=== PATIENT | male | born 1985 | race Caucasian/White ===

== ENCOUNTER 2022-08-19 07:27 | Outpatient (REF) | payer OTHER, SELFPAY ==
[2022-08-19 11:12] LABS: MANUAL DIFF FLAG NO
[2022-08-19 11:23] LABS: Basophils Absolute Auto 0.1 X10*3/uL (0.0-0.2); Basophils Percent Auto 1.9 % (0-2); Eosinophils Absolute Auto 0.3 X10*3/uL (0.0-0.4); Eosinophils Percent Auto 5.4 % (0-4); Hematocrit 47.2 % (42.0-52.0); Hemoglobin 16.3 g/dl (14.0-18.0); Imm Gran Abs Auto 0.01 X10*3/uL (0.00-0.03); Imm Gran Pct Auto 0.2 % (0.0-0.4); Lymphocytes Absolute Auto 1.7 X10*3/uL (1.2-4.9); Mean Corpuscular HGB Conc 34.5 g/dl (31.0-36.0); Mean Corpuscular Hemoglobin 29.7 pg (27.0-33.0); Mean Platelet Volume 9.7 fL (9.4-12.4); Monocytes Absolute Auto 0.5 X10*3/uL (0.1-1.2); Monocytes Percent Auto 9.1 % (2-11); Neutrophils Absolute Auto 3.1 x10*3/uL (2.0-8.3); Neutrophils Percent Auto 54.4 % (45-73); Platelet Count 269 X10*3/uL (160-400); Red Blood Count 5.49 X10*6/uL (4.60-5.80); Red Cell Distribution Width 11.9 % (11.0-16.0); White Blood Count 5.7 X10*3/uL (4.8-10.8)
[2022-08-19 11:48] LABS: Alanine Aminotransferase 17 U/L (0-40); Albumin Level 4.6 g/dL (3.5-5.0); Alkaline Phosphatase 43 U/L (39-117); Anion Gap 10 (12-20); Aspartate Amino Transferase 16 U/L (5-37); Bilirubin Total 2.1 mg/dL (0.0-1.0); Blood Urea Nitrogen 17 mg/dL (9-16); Calcium 9.1 mg/dL (8.4-10.2); Carbon Dioxide 25 mmol/L (22-29); Chloride 107 mmol/L (96-108); Cholesterol 165 mg/dL; Estimated Glomerular Filt Rate > 60; Glucose Fasting 92 mg/dL (60-99); HDL Cholesterol 46 mg/dL; LDL Cholesterol Calculated 106 mg/dl; Potassium 4.3 mmol/L (3.3-5.1); Sodium 138 mmol/L (135-145); Triglycerides 67 mg/dL
== END 2022-08-19 07:28 | disposition home or self-care (01) ==
LOC: HO.HMGCLDS 07:27
PROVIDERS: PCP Internal Medicine; Visit Provider Internal Medicine
DX: Z00.01 Encounter for general adult medical examination with abnormal findings (principal); R03.0 Elevated blood-pressure reading, without diagnosis of hypertension
CPT/HCPCS: 36415; 80053; 80061; 85025

== ENCOUNTER 2023-08-20 16:09 | Inpatient (IN) | payer OTHER, SELFPAY ==
--- NOTE | ~2023-08-20 | XR_ITS ---
EXAMINATION: XR KNEE, LEFT CLINICAL INFORMATION: Left knee pain and swelling. COMPARISON: None available. TECHNIQUE: Four views of the left knee. FINDINGS: Alignment is anatomic. Joint spaces are maintained. No displaced fracture. No significant joint effusion. Prepatellar soft tissue swelling. XR/XR knee LT 3V IMPRESSION: Prepatellar soft tissue swelling.
[2023-08-20 16:25] VITALS: BP 113/63; PULSE 101; RESP 18; TEMP 37.4; O2SAT 98; BMI 25.0
--- NOTE | 2023-08-20 16:25 | ED_ITS ---
HPI - General Adult General Chief complaint: General Medical Stated complaint: right knee pain swollen Time Seen by Provider: 08/20/23 22:03 Source: patient and family Mode of arrival: ambulatory Limitations: no limitations History of Present Illness HPI narrative: 38 yo male no PMH no hx of MRSA here with c/o L knee pain and redness without known cause of infection did get tattoo 2 weeks prior on that calf but the tattoo is healing well. It hurts to move and walk. He denies known bite or puncture. No obvious fevers, this has never happened before. MD complaint: rash on L knee Onset (ago): day(s) (Sunday) Location: left and lower extremity Radiation: non-radiation Severity: moderate Quality: aching Pain Consistency: constant Relieving factors: rest Exacerbating factors: movement Associated symptoms: malaise and rash Treatments prior to arrival: none Related Data Home Medications ?Medication ?Instructions ?Recorded ?Confirmed No Known Home Meds 08/18/22 08/18/22 Allergies Allergy/AdvReac Type Severity Reaction Status Date / Time No Known Allergies Allergy Verified 08/20/23 16:28 Review of Systems 2 Review of Systems: Constitutional : No Fever, No Chills ENT/Mouth : No sore throat, No Rhinorrhea Eyes: No Eye Pain, No Swelling, No Redness Cardiovascular : No Chest Pain, No SOB Respiratory : No Cough, No Sputum Gastrointestinal : No Nausea, No Vomiting, No Diarrhea, No abdominal Pain Genitourinary : No Dysuria, No Hematuria Musculoskeletal : No joint pain, No Myalgias, No Joint Swelling Skin : No Skin Lesions, positive skin rash Neuro : No Weakness, No Numbness, No Headache Psych : No Anxiety, No Depression All other systems reviewed and are negative [facility] Past Medical History Attestation statement: The following information was validated with the patient. Source: old records reviewed Medical History Elevated blood pressure reading Family History Family History Father No problems noted. Mother Type 2 diabetes mellitus Maternal Grandmother Lung cancer Social History Social History Housing: House Patient Tobacco Use Status: Never used Tobacco e-Cigarette/Vaping Use: Never Used Advance Directives: No Advance Directives Information Provided: No Do you have a plan to hurt others: No Plan Current occupational status: employed Cognitive needs: No Hearing needs: No Vision needs: No Physical Exam ED Vital Signs: Vital Signs - 24 hr 08/20/23 16:25 Temperature 99.4 F Pulse Rate 101 H Respiratory Rate 18 Blood Pressure 113/63 Pulse Oximetry 98 Oxygen Delivery Method Room Air BMI result Body Mass Index 25.0 Appearance: Alert. Oriented X3. No acute distress. Eyes: Pupils equal, round and reactive to light. ENT: Pharynx normal. Neck: Normal inspection. Neck supple. CVS: Normal heart rate and rhythm. Pulses normal. Respiratory: No respiratory distress. Breath sounds normal. Abdomen: Soft and nontender. Skin: Skin warm and dry. Normal skin color. Extremities: L anterior leg pre patella very hot to touch and red with pinpoint area noted no pustule no abscess no bogginess no fluctuance - no joint effusion and can bend the knee not consistent with septic joint. His tattoo is peeling but not celluitic, the redness streaks up the thigh and onto the lower leg Neuro: Oriented X 3. No motor deficit. No sensory deficit. Course Course Course Narrative: RME performed by Mely Howell PA-C. Patient is a 38 year old assigned male at presenting to the emergency department with left knee pain. Patient states all of a sudden 3 days ago his left lower leg became warm, swollen, and painful to walk on. Patient has a relatively new tattoo on the same extremity that is 2 weeks old - tattoo looks intact and not infectious. Detailed physical exam and review of systems are deferred to the ice cream machine operator. Labs and imaging ordered. Patient placed back in the waiting room pending room availability and results. Medical Decision Making Medical Decision Making MDM Narrative: 38 yo male healthy here with worsening L leg anterior cellulitis has pretty moderate cellulitis likely from puncture or bite on anterior L patella area no systemic toxicity but he is tachycardia and low grade temps has WBC count 15.6 there are no clinical signs of septic joint. At this time given presentation will obtain cultures and start on vancomycin and zosyn and admit for IV antibiotics 1017pm Differential Diagnosis Differential Diagnoses: The differential diagnosis associated with the presentation includes celllulitis Admission/Observation Consideration of admission/observation: Escalation of care including admission/observation considered admit for IV antibiotics and monitoring of cellulitis Consult Healthcare Provider Management of the patient was discussed with: Hospitalist (will admit) Lab Data MDM Lab Attestation statement: I reviewed the patient's lab results. 08/20/23 18:02 08/20/23 18:02 Labs: Lab Results 08/20/23 Range/Units 18:02 WBC 15.6 H (4.8-10.8) X10*3/uL RBC 5.09 (4.60-5.80) X10*6/uL Hgb 15.3 (14.0-18.0) g/dl Hct 43.0 (42.0-52.0) % MCV 84.5 (80.0-98.0) fL MCH 30.1 (27.0-33.0) pg MCHC 35.6 (31.0-36.0) g/dl RDW 12.2 (11.0-16.0) % Plt Count 251 (160-400) X10*3/uL MPV 9.4 (9.4-12.4) fL Immature Gran % (Auto) 0.3 (0.0-0.4) % Neut % (Auto) 88.9 H (45-73) % Lymph % (Auto) 4.7 L (20-40) % [place] % (Auto) 5.6 (2-11) % Eos % (Auto) 0.1 (0-4) % Baso % (Auto) 0.4 (0-2) % Lymph # (Auto) 0.7 L (1.2-4.9) X10*3/uL [place] # (Auto) 0.9 (0.1-1.2) X10*3/uL Eos # (Auto) 0.0 (0.0-0.4) X10*3/uL Baso # (Auto) 0.1 (0.0-0.2) X10*3/uL Abs Immat Gran (auto) 0.05 H (0.00-0.03) X10*3/uL Absolute Neuts (auto) 13.9 H (2.0-8.3) x10*3/uL Absolute Nucleated RBC 0.000 (0.0-0.012) X10*3/uL Nucleated RBC % (auto) 0.0 (0.0-0.2) /100WBC ESR 12 (0-15) MM/HR Sodium 137 (135-145) mmol/L Potassium 4.0 (3.3-5.1) mmol/L Chloride 102 (96-108) mmol/L Carbon Dioxide 24 (22-29) mmol/L Anion Gap 15 (12-20) BUN 10 (9-16) mg/dL Creatinine 0.89 (0.5-1.4) mg/dL Estim Creat Clear Calc 101.5 Estimated GFR > 60 Random Glucose 127 H (60-115) mg/dL Lactic Acid 1.2 (0.5-2.0) mmol/L Calcium 10.0 D (8.4-10.2) mg/dL Magnesium 2.0 (1.6-2.6) mg/dL Total Bilirubin 1.4 H (0.0-1.0) mg/dL AST 27 (5-37) U/L ALT 39 (0-40) U/L Alkaline Phosphatase 63 (39-117) U/L C-Reactive Protein 10.71 H (< or = 0.50) mg/dL Total Protein 8.0 (6.5-8.0) g/dL Albumin 4.7 (3.5-5.0) g/dL Independent Interpretation I performed an independent interpretation of an: Plain X-Ray (no joint effusion) Independent Historian Clinical information obtained from an independent historian. History obtained from or confirmed by: Spouse External Record Review External record reviewed: Office record Discharge Plan Discharge Clinical Impression: Elevated WBC count, Cellulitis Patient Disposition: Admitted As Inpatient Prescriptions: No Action No Known Home Meds Print Language: Serbian
[2023-08-20 18:15] LABS: MANUAL DIFF FLAG NO
[2023-08-20 18:22] LABS: Basophils Absolute Auto 0.1 X10*3/uL (0.0-0.2); Basophils Percent Auto 0.4 % (0-2); Eosinophils Percent Auto 0.1 % (0-4); Hemoglobin 15.3 g/dl (14.0-18.0); Imm Gran Abs Auto 0.05 X10*3/uL (0.00-0.03); Imm Gran Pct Auto 0.3 % (0.0-0.4); Lymphocytes Absolute Auto 0.7 X10*3/uL (1.2-4.9); Lymphocytes Percent Auto 4.7 % (20-40); Mean Corpuscular HGB Conc 35.6 g/dl (31.0-36.0); Mean Corpuscular Hemoglobin 30.1 pg (27.0-33.0); Mean Corpuscular Volume 84.5 fL (80.0-98.0); Mean Platelet Volume 9.4 fL (9.4-12.4); Monocytes Absolute Auto 0.9 X10*3/uL (0.1-1.2); Monocytes Percent Auto 5.6 % (2-11); Neutrophils Absolute Auto 13.9 x10*3/uL (2.0-8.3); Neutrophils Percent Auto 88.9 % (45-73); Platelet Count 251 X10*3/uL (160-400); Red Blood Count 5.09 X10*6/uL (4.60-5.80); Red Cell Distribution Width 12.2 % (11.0-16.0); White Blood Count 15.6 X10*3/uL (4.8-10.8)
[2023-08-20 18:42] LABS: Lactic Acid 1.2 mmol/L (0.5-2.0)
[2023-08-20 18:48] LABS: Alanine Aminotransferase 39 U/L (0-40); Albumin Level 4.7 g/dL (3.5-5.0); Alkaline Phosphatase 63 U/L (39-117); Anion Gap 15 (12-20); Aspartate Amino Transferase 27 U/L (5-37); Bilirubin Total 1.4 mg/dL (0.0-1.0); Blood Urea Nitrogen 10 mg/dL (9-16); C Reactive Protein 10.71 mg/dL (< or = 0.50); Carbon Dioxide 24 mmol/L (22-29); Chloride 102 mmol/L (96-108); Creatinine Clr Calc Pharmacy 101.5; Estimated Glomerular Filt Rate > 60; Glucose Random 127 mg/dL (60-115); Sodium 137 mmol/L (135-145)
[2023-08-20 19:04] LABS: Erythrocyte Sedimentation Rate 12 MM/HR (0-15)
--- NOTE | 2023-08-20 22:17 | PM.IMHP ---
History of Present Illness Date of Service: 08/20/23 Chief Complaint: Infection This is a 38-year-old male with no pertinent past medical history and not on prescription medications who presents to the emergency department for evaluation of redness and swelling over left knee. Patient states he 1st noticed about redness and swelling over left knee 3 days prior to presentation. It has progressed over the last 24-48 hours. No similar history in the past. Also has been having pain but is able to bend his knee and walk. Patient has a tattoo over left leg that he got 2 weeks prior to presentation but no infection over it. No drainage from left knee site. Patient does not remember any trauma to the left knee but states he was moving stuff all of last week and thinks he could have bumped it somewhere. No fever, chills, nausea, vomiting, chest discomfort, palpitations, shortness of breath, abdominal pain, changes in urinary or bowel habits. In the emergency department, patient was found to be septic and initiated on empiric IV antibiotics. Review of Systems Constitutional: Constitutional: Reports no additional constitutional complaints Cardiovascular: Cardiovascular: Reports no additional cardiovascular complaints Respiratory: Respiratory: Reports no additional respiratory complaints Gastrointestinal: Gastrointestinal: Reports no additional gastrointestinal complaints Genitourinary: Genitourinary: Reports no additional male genitourinary complaints [facility] Medical History Elevated blood pressure reading Family History Father No problems noted. Mother Type 2 diabetes mellitus Maternal Grandmother Lung cancer Social History Housing: House Patient Tobacco Use Status: Never used Tobacco e-Cigarette/Vaping Use: Never Used Advance Directives: No Advance Directives Information Provided: No Do you have a plan to hurt others: No Plan Current occupational status: employed Cognitive needs: No Hearing needs: No Vision needs: No Meds Allergies Allergy/AdvReac Type Severity Reaction Status Date / Time No Known Allergies Allergy Verified 08/20/23 16:28 Active Medications: Current Medications Piperacillin Sod/Tazobactam (Sod 3.375 gm/ Sodium Chloride) 50 mls @ 100 mls/hr IV ONCE ONE Stop: 08/20/23 22:39 Vancomycin HCl 1,000 mg/Vancomycin HCl 750 mg/ Sodium Chloride 535 mls @ 267.5 mls/hr IV ONCE ONE Stop: 08/21/23 00:09 Sodium Chloride (Ns) 1,000 mls @ 999 mls/hr IV .Q1H1M RACHELLE Stop: 08/20/23 23:15 Home Medications ?Medication ?Instructions ?Recorded ?Confirmed ?Last Taken ?Type tykbuoy-mozfrwipgegxz-lnijepde 250 2 tab PO Q6H PRN Headache 08/20/23 08/20/23 Unknown History mg-250 mg-65 mg tablet (Excedrin Extra Strength) Physical Exam Vital Signs and Narrative: Vital Signs: Last Vital Signs Temp 99.4 F 08/20/23 16:25 Pulse 101 H 08/20/23 16:25 Resp 18 08/20/23 16:25 BP 113/63 08/20/23 16:25 Pulse Ox 98 08/20/23 16:25 O2 Del Method Room Air 08/20/23 16:25 BMI result Body Mass Index 25.0 Middle-aged male lying in bed in no distress Neck supple, no JVD Regular rate and rhythm, S1-S2 heard Regular breath sounds bilaterally, no wheezing or crackles appreciated Abdomen soft nontender, no guarding, no rigidity Patient is awake, alert and oriented to self, place, time and person ; no focal motor deficit Skin: Erythema, swelling, warmth present over left knee Psych: Normal mood No pedal edema Results Labs 08/20/23 18:02 08/20/23 18:02 Labs: Laboratory Results - last 24 hr 08/20/23 18:02 MCV 84.5 MCH 30.1 MCHC 35.6 RDW 12.2 Plt Count 251 MPV 9.4 Immature Gran % (Auto) 0.3 Neut % (Auto) 88.9 H Lymph % (Auto) 4.7 L [place] % (Auto) 5.6 Eos % (Auto) 0.1 Baso % (Auto) 0.4 Lymph # (Auto) 0.7 L [place] # (Auto) 0.9 Eos # (Auto) 0.0 Baso # (Auto) 0.1 Abs Immat Gran (auto) 0.05 H Absolute Neuts (auto) 13.9 H Absolute Nucleated RBC 0.000 Nucleated RBC % (auto) 0.0 ESR 12 Anion Gap 15 Estim Creat Clear Calc 101.5 Estimated GFR > 60 Random Glucose 127 H Lactic Acid 1.2 Calcium 10.0 D Magnesium 2.0 Total Bilirubin 1.4 H AST 27 ALT 39 Alkaline Phosphatase 63 C-Reactive Protein 10.71 H Total Protein 8.0 Albumin 4.7 Imaging Radiologist's Impressions: Impressions Knee X-Ray 08/20/23 16:42 IMPRESSION: Prepatellar soft tissue swelling. Assessment and Plan (1) Cellulitis: Qualifiers: Laterality: left Site of cellulitis: extremity Site of cellulitis of extremity: lower extremity Qualified Code(s): L03.116 - Cellulitis of left lower limb Status: Acute Plan This is a 38-year-old male with no pertinent past medical history and not on prescription medications who presents to the emergency department for evaluation of redness and swelling over left knee. #. Sepsis due to acute nonpurulent cellulitis of the left knee: Will admit patient and initiate empiric IV antibiotics. Resuscitated with IV crystalloids. Lactic acid and blood culture obtained. No joint effusion on imaging DVT prophylaxis: Lovenox Full code Admit as inpatient and will require two night minimum hospital stay for IV antibiotics (as above), which is not possible in a lesser acute setting. Quality Stroke Does the patient have a stroke diagnosis?: No VTE Prior VTE?: No VTE Risk Level:: Medical - moderate - high VTE Device Contraindication: Treatment Not Indicated VTE Drug Contraindication: N/A - Med Ordered
--- NOTE | 2023-08-20 22:32 | PHA.MEDREC ---
Pharmacy Consult ? Medication Reconciliation Pharmacy has completed the medication reconciliation. Patient reported only excedrin as needed. July Culver, HectorD
[2023-08-20] MEDS: Piperacillin Sodium/Tazobactam 3.375 GM in 0.9 % Sodium Chloride 50 ML IV (22:33)
[2023-08-20] MEDS: 0.9 % Sodium Chloride 1,000 ML 999 ML IV (22:34)
[2023-08-20 23:17] VITALS: BP 105/56; PULSE 81; RESP 18; TEMP 37.2; O2SAT 97
[2023-08-20] MEDS: vancomycin HCL 1,000 MG, vancomycin HCL 750 MG in 0.9 % Sodium Chloride 500 ML 267.5 MG IV (23:23)
[2023-08-21] MEDS: Enoxaparin Sodium 40 MG/0.4 ML SYRINGE SUBCUT ×2 (03:22→23:33)
[2023-08-21 03:41] VITALS: BP 96/53; PULSE 83; RESP 16; TEMP 36.4; O2SAT 98
[2023-08-21 06:07] LABS: MANUAL DIFF FLAG NO
[2023-08-21 06:11] LABS: Basophils Absolute Auto 0.1 X10*3/uL (0.0-0.2); Basophils Percent Auto 0.5 % (0-2); Eosinophils Percent Auto 0.3 % (0-4); Hematocrit 38.5 % (42.0-52.0); Hemoglobin 13.6 g/dl (14.0-18.0); Imm Gran Abs Auto 0.06 X10*3/uL (0.00-0.03); Imm Gran Pct Auto 0.4 % (0.0-0.4); Lymphocytes Percent Auto 6.9 % (20-40); Mean Corpuscular HGB Conc 35.3 g/dl (31.0-36.0); Mean Corpuscular Volume 84.8 fL (80.0-98.0); Mean Platelet Volume 9.5 fL (9.4-12.4); Monocytes Absolute Auto 1.1 X10*3/uL (0.1-1.2); Monocytes Percent Auto 8.2 % (2-11); Neutrophils Absolute Auto 11.6 x10*3/uL (2.0-8.3); Neutrophils Percent Auto 83.7 % (45-73); Platelet Count 217 X10*3/uL (160-400); Red Blood Count 4.54 X10*6/uL (4.60-5.80); Red Cell Distribution Width 12.1 % (11.0-16.0); White Blood Count 13.8 X10*3/uL (4.8-10.8)
[2023-08-21 06:33] LABS: Anion Gap 14 (12-20); Blood Urea Nitrogen 8 mg/dL (9-16); Carbon Dioxide 19 mmol/L (22-29); Chloride 109 mmol/L (96-108); Creatinine Clr Calc Pharmacy 117.3; Estimated Glomerular Filt Rate > 60; Glucose Random 120 mg/dL (60-115); Sodium 138 mmol/L (135-145)
[2023-08-21 08:28] VITALS: BP 123/70; PULSE 82; RESP 18; TEMP 37.3; O2SAT 98
--- NOTE | 2023-08-21 08:30 | HE.PHANOTE ---
Re: Vanco Renal function improving. Continue current regimen of 1250m q12h. Next trough 08/21 1000.
[2023-08-21] MEDS: 0.9 % Sodium Chloride Flush 3 ML SYRINGE IVFLUSH ×3 (09:19→21:42)
[2023-08-21] MEDS: Acetaminophen 325 MG TABLET 650 MG PO (09:37)
--- NOTE | 2023-08-21 09:38 | MHC.CM.PN ---
pt lives with is indepndet will not need services when dcd
[2023-08-21] MEDS: oxyCODONE HCl Immed Release 5 MG TABLET PO ×2 (09:42→21:42)
[2023-08-21 10:22] LABS: Uric Acid 2.9 mg/dL (3.4-7.0)
[2023-08-21] MEDS: vancomycin HCL 1,250 MG in 0.9 % Sodium Chloride 250 ML 166.67 MG IV ×2 (12:01→23:34)
--- NOTE | 2023-08-21 13:16 | P.PNIM_ITS ---
Subjective Subjective Date of Service: 08/21/23 Review of Systems Follow up knee cellulitis still with pain and stiffness Physical Exam 2 Vital Signs: Vital Signs: Last Vital Signs Temp 99.2 F 08/21/23 08:28 Pulse 82 08/21/23 08:28 Resp 18 08/21/23 08:28 BP 123/70 08/21/23 08:28 Pulse Ox 98 08/21/23 08:28 O2 Del Method Room Air 08/21/23 08:28 BMI result Body Mass Index 25.0 Appearing in no acute distress lung sounds are clear to auscultation heart regular rate rhythm, clear S1, S2 positive bowel sounds, abdomen is soft, nontender neuro patient is alert x3, no focal deficits Left knee with erythema and edema Objective Data Active Medications Acetaminophen (Acetaminophen 325 Mg Tablet) 650 mg PO Q6H PRN PRN Reason: Pain, Mild (Pain Scale 1-3) Last Admin: 08/21/23 09:37 Dose: 650 mg Documented By: AUDREY Enoxaparin Sodium (Enoxaparin Sodium 40 Mg/0.4 Ml Syringe) 40 mg SUBCUT Q24H [facility] Last Admin: 08/21/23 03:22 Dose: 40 mg Documented By: NUNO Vancomycin HCl 1,250 mg/ (Sodium Chloride) 250 mls @ 166.667 mls/hr IV Q12H [facility] Last Admin: 08/21/23 12:01 Dose: 166.67 mls/hr Documented By: AUDREY Melatonin (Melatonin 3 Mg Tablet) 6 mg PO BEDTIME PRN PRN Reason: Insomnia Morphine Sulfate (Morphine Sulfate 2 Mg/Ml Cartridge) 2 mg IVPUSH Q4H PRN; Protocol PRN Reason: Pain, Severe (Pain Scale 7-10) Ondansetron HCl (Ondansetron Hcl 4 Mg/2 Ml Vial) 4 mg IVPUSH Q8H PRN PRN Reason: Nausea and Vomiting Oxycodone HCl (Oxycodone Hcl Immed Release 5 Mg Tablet) 5 mg PO Q6H PRN PRN Reason: Pain, Moderate(Pain Scale 4-6) Last Admin: 08/21/23 09:42 Dose: 5 mg Documented By: AUDREY Pharmacy Consult (Consult Rx Vancomycin Dosing) 1 each MISCELLANE DAILY PRN PRN Reason: Consult order Sodium Chloride (0.9 % Sodium Chloride Flush 3 Ml Syringe) 3 ml IVFLUSH QSHIFT [facility] Last Admin: 08/21/23 09:19 Dose: 3 ml Documented By: AUDREY Labs 08/21/23 05:17 08/21/23 05:17 Labs: Laboratory Results - last 24 hr 08/20/23 08/21/23 08/21/23 18:02 05:17 09:40 MCV 84.5 84.8 MCH 30.1 30.0 MCHC 35.6 35.3 RDW 12.2 12.1 Plt Count 251 217 MPV 9.4 9.5 Immature Gran % (Auto) 0.3 0.4 Neut % (Auto) 88.9 H 83.7 H Lymph % (Auto) 4.7 L 6.9 L [place] % (Auto) 5.6 8.2 Eos % (Auto) 0.1 0.3 Baso % (Auto) 0.4 0.5 Lymph # (Auto) 0.7 L 1.0 L [place] # (Auto) 0.9 1.1 Eos # (Auto) 0.0 0.0 Baso # (Auto) 0.1 0.1 Abs Immat Gran (auto) 0.05 H 0.06 H Absolute Neuts (auto) 13.9 H 11.6 H Absolute Nucleated RBC 0.000 0.000 Nucleated RBC % (auto) 0.0 0.0 ESR 12 Anion Gap 15 14 Estim Creat Clear Calc 101.5 117.3 Estimated GFR > 60 > 60 Random Glucose 127 H 120 H Lactic Acid 1.2 Uric Acid 2.9 L Calcium 10.0 D 9.0 D Magnesium 2.0 Total Bilirubin 1.4 H AST 27 ALT 39 Alkaline Phosphatase 63 C-Reactive Protein 10.71 H Total Protein 8.0 Albumin 4.7 Assessment and Plan (1) Cellulitis: Status: Acute Plan This is a 38-year-old male with no pertinent past medical history and not on prescription medications who presents to the emergency department for evaluation of redness and swelling over left knee. Sepsis due to acute nonpurulent cellulitis of the left knee continue empiric IV antibiotics. Resuscitated with IV crystalloids. normal Lactic acid blood cultures pending No joint effusion on imaging pain management ID consult pending DVT prophylaxis: Lovenox Attending Dr. Cade Full code continue hospital stay for IV antibiotics (as above), which is not possible in a lesser acute setting. Quality Stroke Does the patient have a stroke diagnosis?: No VTE Prior VTE?: No VTE Risk Level:: Medical - moderate - high VTE Device Contraindication: Treatment Not Indicated VTE Drug Contraindication: N/A - Med Ordered
[2023-08-21 15:02] VITALS: BP 113/62; PULSE 85; TEMP 37.1; O2SAT 95
[2023-08-21 19:27] VITALS: BP 117/63; PULSE 92; RESP 16; TEMP 37.2; O2SAT 96
[2023-08-22 03:05] VITALS: BP 131/62; PULSE 85; RESP 18; TEMP 37; O2SAT 95
[2023-08-22 07:14] VITALS: BP 108/60; PULSE 79; RESP 18; TEMP 36.9; O2SAT 96
[2023-08-22 07:30] LABS: Creatinine Clr Calc Pharmacy 111.5; Estimated Glomerular Filt Rate > 60
--- NOTE | 2023-08-22 07:49 | HO.PM.IMPN ---
Subjective Subjective Date of Service: 08/22/23 Review of Systems Follow up knee cellulitis still with pain and stiffness Physical Exam Vital Signs: Vital Signs: Last Vital Signs Temp 98.4 F 08/22/23 07:14 Pulse 79 08/22/23 07:14 Resp 18 08/22/23 07:14 BP 108/60 08/22/23 07:14 Pulse Ox 96 08/22/23 07:14 O2 Del Method Room Air 08/22/23 07:14 BMI result Body Mass Index 25.0 Appearing in no acute distress lung sounds are clear to auscultation heart regular rate rhythm, clear S1, S2 positive bowel sounds, abdomen is soft, nontender neuro patient is alert x3, no focal deficits Left knee with erythema from inner thigh to robison Objective Data Active Medications Acetaminophen (Acetaminophen 325 Mg Tablet) 650 mg PO Q6H PRN PRN Reason: Pain, Mild (Pain Scale 1-3) Last Admin: 08/21/23 09:37 Dose: 650 mg Documented By: AUDREY Enoxaparin Sodium (Enoxaparin Sodium 40 Mg/0.4 Ml Syringe) 40 mg SUBCUT Q24H [facility] Last Admin: 08/21/23 23:33 Dose: 40 mg Documented By: BARRETT Vancomycin HCl 1,250 mg/ (Sodium Chloride) 250 mls @ 166.667 mls/hr IV Q12H [facility] Last Infusion: 08/22/23 01:22 Dose: Infused Documented By: BARRETT Melatonin (Melatonin 3 Mg Tablet) 6 mg PO BEDTIME PRN PRN Reason: Insomnia Morphine Sulfate (Morphine Sulfate 2 Mg/Ml Cartridge) 2 mg IVPUSH Q4H PRN; Protocol PRN Reason: Pain, Severe (Pain Scale 7-10) Ondansetron HCl (Ondansetron Hcl 4 Mg/2 Ml Vial) 4 mg IVPUSH Q8H PRN PRN Reason: Nausea and Vomiting Oxycodone HCl (Oxycodone Hcl Immed Release 5 Mg Tablet) 5 mg PO Q6H PRN PRN Reason: Pain, Moderate(Pain Scale 4-6) Last Admin: 08/21/23 21:42 Dose: 5 mg Documented By: BARRETT Pharmacy Consult (Consult Rx Vancomycin Dosing) 1 each MISCELLANE DAILY PRN PRN Reason: Consult order Sodium Chloride (0.9 % Sodium Chloride Flush 3 Ml Syringe) 3 ml IVFLUSH QSHIFT RACHELLE Last Admin: 08/21/23 21:42 Dose: 3 ml Documented By: BARRETT Labs 08/21/23 05:17 08/22/23 05:32 Labs: Laboratory Results - last 24 hr 08/21/23 08/22/23 09:40 05:32 Hold Purple Top SEE NOTE Estim Creat Clear Calc 111.5 Estimated GFR > 60 Uric Acid 2.9 L Microbiology Microbiology Results: Microbiology 08/20/23 22:32 Blood Culture - Preliminary Blood - Venous No growth after 24 hours. 08/20/23 18:02 Blood Culture - Preliminary Blood - Venous No growth after 24 hours. Assessment and Plan (1) Cellulitis: Status: Acute Plan This is a 38-year-old male with no pertinent past medical history and not on prescription medications who presents to the emergency department for evaluation of redness and swelling over left knee. Sepsis due to acute nonpurulent cellulitis of the left knee normal lactic acid blood cultures pending No joint effusion on imaging pain management Orthopedic consultation>warm compress, no joint infection ID consult pending leukocytosis secondary to cellulitis trending down DVT prophylaxis: Lovejocelynx Attending Dr. Cade Full code continue hospital stay for IV antibiotics (as above), which is not possible in a lesser acute setting. Quality Stroke Does the patient have a stroke diagnosis?: No VTE Prior VTE?: No VTE Risk Level:: Medical - moderate - high VTE Device Contraindication: Treatment Not Indicated VTE Drug Contraindication: N/A - Med Ordered
--- NOTE | 2023-08-22 07:54 | PM.CNOR ---
History of Present Illness HPI Consult date: 08/22/23 Chief complaint: left knee infection Narrative: Mr Ramsey is a 38-year-old male with no pertinent past medical history and not on prescription medications who presents to the emergency department for evaluation of redness and swelling over left knee. Patient states he 1st noticed about redness and swelling Sunday. Over the next following days the redness and pain has progressed. He presented to the ED sunday and was admitted for IV abx. Of note he did hjave a tattoo on the lateral lower leg roughly 2-3 weeks ago. Review of Systems Review of Systems: Yes all other systems are reviewed and are negative PMFSH Past Medical History Medical History Elevated blood pressure reading Family History Family History Father No problems noted. Mother Type 2 diabetes mellitus Maternal Grandmother Lung cancer Social History Social History Household Members: Family Housing: House Do you presently have visiting nurse or other home services: No Patient Tobacco Use Status: Never used Tobacco e-Cigarette/Vaping Use: Never Used service: Yes Current occupational status: employed Cognitive needs: No Hearing needs: No Vision needs: No Meds Allergies Allergy/AdvReac Type Severity Reaction Status Date / Time No Known Allergies Allergy Verified 08/20/23 16:28 Active Medications: Current Medications Acetaminophen (Acetaminophen 325 Mg Tablet) 650 mg PO Q6H PRN PRN Reason: Pain, Mild (Pain Scale 1-3) Last Admin: 08/21/23 09:37 Dose: 650 mg Enoxaparin Sodium (Enoxaparin Sodium 40 Mg/0.4 Ml Syringe) 40 mg SUBCUT Q24H [facility] Last Admin: 08/21/23 23:33 Dose: 40 mg Vancomycin HCl 1,250 mg/ (Sodium Chloride) 250 mls @ 166.667 mls/hr IV Q12H [facility] Last Infusion: 08/22/23 01:22 Dose: Infused Melatonin (Melatonin 3 Mg Tablet) 6 mg PO BEDTIME PRN PRN Reason: Insomnia Morphine Sulfate (Morphine Sulfate 2 Mg/Ml Cartridge) 2 mg IVPUSH Q4H PRN; Protocol PRN Reason: Pain, Severe (Pain Scale 7-10) Ondansetron HCl (Ondansetron Hcl 4 Mg/2 Ml Vial) 4 mg IVPUSH Q8H PRN PRN Reason: Nausea and Vomiting Oxycodone HCl (Oxycodone Hcl Immed Release 5 Mg Tablet) 5 mg PO Q6H PRN PRN Reason: Pain, Moderate(Pain Scale 4-6) Last Admin: 08/21/23 21:42 Dose: 5 mg Pharmacy Consult (Consult Rx Vancomycin Dosing) 1 each MISCELLANE DAILY PRN PRN Reason: Consult order Sodium Chloride (0.9 % Sodium Chloride Flush 3 Ml Syringe) 3 ml IVFLUSH QSHIFT [facility] Last Admin: 08/21/23 23:41 Dose: Not Given Home Medications ?Medication ?Instructions ?Recorded ?Confirmed ?Last Taken ?Type [id number] 250 2 tab PO Q6H PRN Headache 08/20/23 08/20/23 Unknown History mg-250 mg-65 mg tablet (Excedrin Extra Strength) Physical Exam Vital Signs: Vital Signs: Last Vital Signs Temp 98.4 F 08/22/23 07:14 Pulse 79 08/22/23 07:14 Resp 18 08/22/23 07:14 BP 108/60 08/22/23 07:14 Pulse Ox 96 08/22/23 07:14 O2 Del Method Room Air 08/22/23 07:14 BMI result Body Mass Index 25.0 Const: General: cooperative, healthy appearing and no acute distress Resp: Effort & Inspection: normal respiratory effort and able to speak in complete sentences Cardio: Rate: regular rate Peripheral pulses: Peripheral pulses 2+ throughout GI: Palpation (GI): Soft to palpation Skin: Lesions: no lesions Rashes: no rashes Extrem: Other: Left knee cellulitic Abscess over the anterior aspect of the knee with two small pustules noted Able to flex and extend with pain NVI Results Labs 08/21/23 05:17 08/22/23 05:32 Labs: Abnormal lab results 08/21/23 Range/Units 09:40 Uric Acid 2.9 L (3.4-7.0) mg/dL H & H 08/20/23 08/21/23 Range/Units 18:02 05:17 Hgb 15.3 13.6 L (14.0-18.0) g/dl Hct 43.0 38.5 L (42.0-52.0) % All other labs normal. Assessment and Plan (1) Cellulitis: Qualifiers: Laterality: left Site of cellulitis: extremity Site of cellulitis of extremity: lower extremity Qualified Code(s): L03.116 - Cellulitis of left lower limb Status: Acute Patient seen and evaluated this morning No evidence of septic joint Apply warm compress to allow for abscess to drain Continue abx Procedures Date of Service Date of Service: 08/22/23
[2023-08-22] MEDS: Morphine Sulfate 2 MG/ML CARTRIDGE IVPUSH (08:55)
[2023-08-22] MEDS: 0.9 % Sodium Chloride Flush 3 ML SYRINGE IVFLUSH ×4 (08:56→22:37)
[2023-08-22 10:22] LABS: Vancomycin Trough 8.2 mcg/mL (10.0-20.0)
--- NOTE | 2023-08-22 10:39 | HE.PHANOTE ---
Re: [place] Stable Renal function. Trough returned at 8.2, patient is subtherapeutic. Dose frequency increased to 1250mg Q8H, with predicted trough 15.1 mg/L, and predicted AUC 572 mg/L. Next tough is 08/22 @ 10:00.
[2023-08-22] MEDS: vancomycin HCL 1,250 MG in 0.9 % Sodium Chloride 250 ML 166.67 MG IV ×2 (11:54→21:03)
[2023-08-22] MEDS: oxyCODONE HCl Immed Release 5 MG TABLET PO ×2 (11:54→16:04)
[2023-08-22 15:11] VITALS: BP 118/62; PULSE 97; RESP 17; TEMP 36.3; O2SAT 95
[2023-08-22] MEDS: Lidocaine HCl 2 % 20 ML VIAL 5 ML SUBCUT (15:30)
--- NOTE | 2023-08-22 15:52 | PM.PRCOR ---
Brief Operative Note Date of procedure: 08/22/23 Procedure: Bedside I&D left knee performed Creamy discharge produced from the abscess site Surgeon: Stevan Lyon Pathology: none sent Condition: stable Disposition: floor
[2023-08-22 19:17] VITALS: BP 122/76; PULSE 95; RESP 16; O2SAT 95
[2023-08-22] MEDS: Enoxaparin Sodium 40 MG/0.4 ML SYRINGE SUBCUT (22:37)
[2023-08-23 03:18] VITALS: BP 117/63; PULSE 84; RESP 16; TEMP 36.7; O2SAT 97
[2023-08-23] MEDS: vancomycin HCL 1,250 MG in 0.9 % Sodium Chloride 250 ML 166.67 MG IV ×3 (03:24→20:18)
[2023-08-23 06:15] LABS: Creatinine Clr Calc Pharmacy 115.8; Estimated Glomerular Filt Rate > 60
[2023-08-23 07:28] VITALS: BP 114/68; PULSE 83; RESP 16; TEMP 36.7; O2SAT 96
[2023-08-23] MEDS: oxyCODONE HCl Immed Release 5 MG TABLET PO (08:23)
[2023-08-23] MEDS: 0.9 % Sodium Chloride Flush 3 ML SYRINGE IVFLUSH ×2 (08:24→20:21)
--- NOTE | 2023-08-23 09:51 | PM.PNORT ---
Subjective Subjective Date of Service: 08/23/23 Principal diagnosis: left knee spetic bursitis Physical Exam Vital Signs: Vital Signs: Last Vital Signs Temp 98.1 F 08/23/23 07:28 Pulse 83 08/23/23 07:28 Resp 16 08/23/23 07:28 BP 114/68 08/23/23 07:28 Pulse Ox 96 08/23/23 07:28 O2 Del Method Room Air 08/23/23 07:28 BMI result Body Mass Index 25.0 Extrem: Other: purulent discharge left knee abcess Procedures Date of Service Date of Service: 08/23/23 Progress Note: A&P Assessment and plan (1) Septic prepatellar bursitis of left knee: Status: Acute Assessment and Plan: Draining wound s/p bediside I&D. WOund re packed. Out of bed today and home tomorrow after dressing change. OK on PO abx Time Spent With Patient Time: Total time managing care of this patient today ____ minutes. Quality Stroke Does the patient have a stroke diagnosis?: No VTE Prior VTE?: No VTE Risk Level:: Medical - moderate - high VTE Device Contraindication: Treatment Not Indicated VTE Drug Contraindication: N/A - Med Ordered
[2023-08-23 10:23] LABS: Vancomycin Random 16.4 mcg/mL (15-20)
--- NOTE | 2023-08-23 13:31 | P.PNIM_ITS ---
Subjective Subjective Date of Service: 08/23/23 Interval History: seen and examined this morning follow up for left knee septic bursitis has left leg swelling, pain, no fever chills Review of Systems Review of Systems: Yes all other systems are reviewed and are negative Constitutional Constitutional: Denies chills and Denies fever(s) Physical Exam 2 Vital Signs: Vital Signs: Last Vital Signs Temp 98.1 F 08/23/23 07:28 Pulse 83 08/23/23 07:28 Resp 16 08/23/23 07:28 BP 114/68 08/23/23 07:28 Pulse Ox 96 08/23/23 07:28 O2 Del Method Room Air 08/23/23 07:28 BMI result Body Mass Index 25.0 Const: General: cooperative, comfortable, alert and awake Nutritional Appearance: average body habitus Orientation/consciousness: patient oriented x3 Resp: Effort & Inspection: normal respiratory effort, able to speak in complete sentences, no respiratory distress and no use of accessory muscles Cardio: Rate: regular rate GI: Inspection: No distended Palpation (GI): Soft to palpation and nontender Skin: Other: LLE with swelling, some erythema up posterior thigh; knee wrapped in clean/dry Elvis bandage Neuro: General: patient oriented x3 Objective Data Active Medications Acetaminophen (Acetaminophen 325 Mg Tablet) 650 mg PO Q6H PRN PRN Reason: Pain, Mild (Pain Scale 1-3) Last Admin: 08/21/23 09:37 Dose: 650 mg Documented By: AUDREY Enoxaparin Sodium (Enoxaparin Sodium 40 Mg/0.4 Ml Syringe) 40 mg SUBCUT Q24H [facility] Last Admin: 08/22/23 22:37 Dose: 40 mg Documented By: CALVIN Vancomycin HCl 1,250 mg/ (Sodium Chloride) 250 mls @ 166.667 mls/hr IV Q8H [facility] Last Admin: 08/23/23 12:52 Dose: 166.67 mls/hr Documented By: BAYRON Melatonin (Melatonin 3 Mg Tablet) 6 mg PO BEDTIME PRN PRN Reason: Insomnia Morphine Sulfate (Morphine Sulfate 2 Mg/Ml Cartridge) 2 mg IVPUSH Q4H PRN; Protocol PRN Reason: Pain, Severe (Pain Scale 7-10) Last Admin: 08/22/23 08:55 Dose: 2 mg Documented By: BAYRON Ondansetron HCl (Ondansetron Hcl 4 Mg/2 Ml Vial) 4 mg IVPUSH Q8H PRN PRN Reason: Nausea and Vomiting Oxycodone HCl (Oxycodone Hcl Immed Release 5 Mg Tablet) 5 mg PO Q6H PRN PRN Reason: Pain, Moderate(Pain Scale 4-6) Last Admin: 08/23/23 08:23 Dose: 5 mg Documented By: BAYRON Pharmacy Consult (Consult Rx Vancomycin Dosing) 1 each MISCELLANE DAILY PRN PRN Reason: Consult order Sodium Chloride (0.9 % Sodium Chloride Flush 3 Ml Syringe) [facility] Last Admin: 08/23/23 08:24 Dose: 3 ml Documented By: BAYRON Labs 08/21/23 05:17 08/23/23 05:15 Labs: Laboratory Results - last 24 hr 08/23/23 08/23/23 05:15 09:59 Estim Creat Clear Calc 115.8 Estimated GFR > 60 Random Vancomycin 16.4 Microbiology Microbiology Results: Microbiology 08/20/23 22:32 Blood Culture - Preliminary Blood - Venous No growth after 48 hours. 08/20/23 18:02 Blood Culture - Preliminary Blood - Venous No growth after 48 hours. Assessment and Plan (1) Septic prepatellar bursitis of left knee: Status: Acute Plan This is a 38-year-old male with no pertinent past medical history and not on prescription medications who presents to the emergency department for evaluation of redness and swelling over left knee. Sepsis due to acute left knee septic bursitis normal lactic acid; white count trending down s/p I&D 08/21 by orthopedic service; wound re-packed this am blood cultures negative to date continue vancomycin pain management ID consult pending seen by PT - outpatient services DVT prophylaxis: [place] Attending Dr. Cade Full code continue hospital stay for IV antibiotics (as above) close monitoring of the left knee, which is not possible in a lesser acute setting. Quality Stroke Does the patient have a stroke diagnosis?: No VTE Prior VTE?: No VTE Risk Level:: Medical - moderate - high VTE Device Contraindication: Treatment Not Indicated VTE Drug Contraindication: N/A - Med Ordered
[2023-08-23 15:08] VITALS: BP 115/72; PULSE 85; RESP 16; TEMP 36.7; O2SAT 97
[2023-08-23 19:08] VITALS: BP 120/74; PULSE 80; RESP 16; TEMP 36.6; O2SAT 97
[2023-08-23] MEDS: Enoxaparin Sodium 40 MG/0.4 ML SYRINGE SUBCUT (21:51)
[2023-08-24] MEDS: vancomycin HCL 1,250 MG in 0.9 % Sodium Chloride 250 ML 166.67 MG IV (03:15)
[2023-08-24 03:25] VITALS: BP 127/62; PULSE 78; RESP 16; TEMP 36.2; O2SAT 96
[2023-08-24 06:16] LABS: Creatinine Clr Calc Pharmacy 108.8; Estimated Glomerular Filt Rate > 60
[2023-08-24 07:11] VITALS: BP 102/60; PULSE 81; RESP 16; TEMP 36.4; O2SAT 97
[2023-08-24] MEDS: 0.9 % Sodium Chloride Flush 3 ML SYRINGE IVFLUSH ×3 (08:03→20:08)
[2023-08-24] MEDS: oxyCODONE HCl Immed Release 5 MG TABLET PO (08:03)
[2023-08-24 10:22] LABS: Vancomycin Trough 19.9 mcg/mL (10.0-20.0)
[2023-08-24 10:43] LABS: MANUAL DIFF FLAG NO
--- NOTE | 2023-08-24 10:43 | HE.PHANOTE ---
Re: [place] Patient has stable renal function. Trough returned at 19.9. Dose reduced to 1,000mg Q8H with predicted AUC 479 mg/L, predicted trough 12.8 mg/L. Next trough 08/24 at 1000.
[2023-08-24 10:48] LABS: Basophils Absolute Auto 0.1 X10*3/uL (0.0-0.2); Basophils Percent Auto 0.7 % (0-2); Eosinophils Absolute Auto 0.3 X10*3/uL (0.0-0.4); Eosinophils Percent Auto 3.4 % (0-4); Hematocrit 39.7 % (42.0-52.0); Hemoglobin 14.2 g/dl (14.0-18.0); Imm Gran Abs Auto 0.04 X10*3/uL (0.00-0.03); Imm Gran Pct Auto 0.5 % (0.0-0.4); Lymphocytes Absolute Auto 0.9 X10*3/uL (1.2-4.9); Lymphocytes Percent Auto 10.8 % (20-40); Mean Corpuscular HGB Conc 35.8 g/dl (31.0-36.0); Mean Corpuscular Hemoglobin 30.1 pg (27.0-33.0); Mean Corpuscular Volume 84.3 fL (80.0-98.0); Monocytes Absolute Auto 0.7 X10*3/uL (0.1-1.2); Neutrophils Absolute Auto 6.6 x10*3/uL (2.0-8.3); Neutrophils Percent Auto 76.6 % (45-73); Platelet Count 282 X10*3/uL (160-400); Red Blood Count 4.71 X10*6/uL (4.60-5.80); Red Cell Distribution Width 11.7 % (11.0-16.0); White Blood Count 8.6 X10*3/uL (4.8-10.8)
--- NOTE | 2023-08-24 11:43 | MHC.CM.PN ---
EMR REVIEWED, PER HOSPITALIST PT WILL REMAIN INPT 1 MORE NIGHT FOR CONT'D IV ABX, DCP CONT'S TO BE HOME NO SERVICES AND PT WILL ARRANGE TRANSPORT, CM WILL CONT TO FOLLOW.
[2023-08-24] MEDS: vancomycin HCL 1,000 MG in 0.9 % Sodium Chloride 250 ML 270 MG IV ×2 (12:23→20:10)
--- NOTE | 2023-08-24 13:54 | P.PNIM_ITS ---
Subjective Subjective Date of Service: 08/24/23 Interval History: Seen and examined this morning Follow-up for septic bursitis Still with drainage from the and erythema of posterior thigh. Pain and swelling improving Denies fever, chills Review of Systems Review of Systems: Yes all other systems are reviewed and are negative Constitutional Constitutional: Denies chills and Denies fever(s) Physical Exam 2 Vital Signs: Vital Signs: Last Vital Signs Temp 97.6 F 08/24/23 07:11 Pulse 81 08/24/23 07:11 Resp 16 08/24/23 07:11 BP 102/60 08/24/23 07:11 Pulse Ox 97 08/24/23 07:11 O2 Del Method Room Air 08/24/23 07:11 BMI result Body Mass Index 25.0 Const: General: cooperative, comfortable, alert and awake Nutritional Appearance: average body habitus Orientation/consciousness: patient oriented x3 Resp: Effort & Inspection: normal respiratory effort, able to speak in complete sentences, no respiratory distress and no use of accessory muscles Cardio: Rate: regular rate GI: Inspection: No distended Palpation (GI): Soft to palpation and nontender Skin: Other: LLE with swelling, some erythema up posterior thigh; knee wrapped in clean/dry Elvis bandage Neuro: General: patient oriented x3 Objective Data Active Medications Acetaminophen (Acetaminophen 325 Mg Tablet) 650 mg PO Q6H PRN PRN Reason: Pain, Mild (Pain Scale 1-3) Last Admin: 08/21/23 09:37 Dose: 650 mg Documented By: AUDREY Enoxaparin Sodium (Enoxaparin Sodium 40 Mg/0.4 Ml Syringe) 40 mg SUBCUT Q24H [facility] Last Admin: 08/23/23 21:51 Dose: 40 mg Documented By: CALVIN Vancomycin HCl 1,000 mg/ (Sodium Chloride) 270 mls @ 270 mls/hr IV Q8H [facility] Last Admin: 08/24/23 12:23 Dose: 270 mls/hr Documented By: KHADIJAH Melatonin (Melatonin 3 Mg Tablet) 6 mg PO BEDTIME PRN PRN Reason: Insomnia Morphine Sulfate (Morphine Sulfate 2 Mg/Ml Cartridge) 2 mg IVPUSH Q4H PRN; Protocol PRN Reason: Pain, Severe (Pain Scale 7-10) Last Admin: 08/22/23 08:55 Dose: 2 mg Documented By: BAYRON Ondansetron HCl (Ondansetron Hcl 4 Mg/2 Ml Vial) 4 mg IVPUSH Q8H PRN PRN Reason: Nausea and Vomiting Oxycodone HCl (Oxycodone Hcl Immed Release 5 Mg Tablet) 5 mg PO Q6H PRN PRN Reason: Pain, Moderate(Pain Scale 4-6) Last Admin: 08/24/23 08:03 Dose: 5 mg Documented By: KHADIJAH Pharmacy Consult (Consult Rx Vancomycin Dosing) 1 each MISCELLANE DAILY PRN PRN Reason: Consult order Sodium Chloride (0.9 % Sodium Chloride Flush 3 Ml Syringe) 3 ml IVFLUSH QSHIFT [facility] Last Admin: 08/24/23 08:03 Dose: 3 ml Documented By: KHADIJAH Labs 08/24/23 10:38 08/24/23 05:14 Labs: Laboratory Results - last 24 hr 08/24/23 08/24/23 08/24/23 05:14 09:57 10:38 MCV 84.3 MCH 30.1 MCHC 35.8 RDW 11.7 Plt Count 282 D MPV 9.0 L Immature Gran % (Auto) 0.5 H Neut % (Auto) 76.6 H Lymph % (Auto) 10.8 L [place] % (Auto) 8.0 Eos % (Auto) 3.4 Baso % (Auto) 0.7 Lymph # (Auto) 0.9 L [place] # (Auto) 0.7 Eos # (Auto) 0.3 Baso # (Auto) 0.1 Abs Immat Gran (auto) 0.04 H Absolute Neuts (auto) 6.6 Absolute Nucleated RBC 0.000 Nucleated RBC % (auto) 0.0 Estim Creat Clear Calc 108.8 Estimated GFR > 60 Vancomycin Trough 19.9 Assessment and Plan (1) Septic prepatellar bursitis of left knee: Status: Acute (2) Cellulitis: Status: Acute Plan This is a 38-year-old male with no pertinent past medical history and not on prescription medications who presents to the emergency department for evaluation of redness and swelling over left knee. Sepsis due to acute left knee septic bursitis/ LLE cellulitis normal lactic acid; white count resolved s/p I&D 08/21 by orthopedic service; wound re-packed this am No fluid culture sent blood cultures negative to date continue vancomycin ? Need to broaden/change coverage due to persistent cellulitis/erythema of left thigh - will discuss with ID pain management ID consult pending seen by PT - outpatient services DVT prophylaxis: Red Attending Dr. Cade Full code continue hospital stay for IV antibiotics (as above) close monitoring of the left knee, which is not possible in a lesser acute setting. Quality Stroke Does the patient have a stroke diagnosis?: No VTE Prior VTE?: No VTE Risk Level:: Medical - moderate - high VTE Device Contraindication: Treatment Not Indicated VTE Drug Contraindication: N/A - Med Ordered
[2023-08-24 15:09] VITALS: BP 118/70; PULSE 78; RESP 18; TEMP 36.3; O2SAT 95
[2023-08-24] MEDS: Clindamycin Phosphate/D5W 900 MG/50 ML PIGGYBACK 50 MG IV ×2 (15:25→23:16)
[2023-08-24 19:51] VITALS: BP 114/75; PULSE 91; RESP 20; TEMP 36.3; O2SAT 99
--- NOTE | 2023-08-24 21:03 | P.CNID_ITS ---
History of Present Illness Data of Consult Service Date: 08/22/23 Requesting physician: Aileen Proctor Primary Care Provider: MD LILLIE Whitman Reason for consult: left knee/leg redness He presents with redness left leg and pain. He had symptoms 2-3 days with redness and pain. He still has redness going up leg. Review of Systems 2 Review of Systems: Yes all other systems are reviewed and are negative PMF Past Medical History Medical History Elevated blood pressure reading Family History Family History Father No problems noted. Mother Type 2 diabetes mellitus Maternal Grandmother Lung cancer Family history: reviewed and not pertinent Social History Social History Household Members: Family Housing: House Do you presently have visiting nurse or other home services: No Patient Tobacco Use Status: Never used Tobacco Smoked in Last 30 Days: No e-Cigarette/Vaping Use: Never Used Use of substances other than those prescribed or required for medical reasons: No Currently Displaying Signs/Symptoms of Drug Intoxication Withdrawal: No Have you been hit, kicked, punched, or otherwise hurt by someone within the past year? If so, by whom?: No Do you feel safe in your current relationship?: Yes Is there a partner from a previous relationship who is making you feel unsafe now?: No Are you made to feel afraid or neglected: No Advance Directives: No Advance Directives Information Provided: No Do you have a plan to hurt others: No Plan Recently lost weight without trying: No Nutrition Risks: No Nutritional Risk Poor oral hygiene: No service: Yes Current occupational status: employed Cognitive needs: No Hearing needs: No Vision needs: No Meds Allergies Allergy/AdvReac Type Severity Reaction Status Date / Time No Known Allergies Allergy Verified 08/20/23 16:28 Active Medications: Current Medications Acetaminophen (Acetaminophen 325 Mg Tablet) 650 mg PO Q6H PRN PRN Reason: Pain, Mild (Pain Scale 1-3) Last Admin: 08/21/23 09:37 Dose: 650 mg Enoxaparin Sodium (Enoxaparin Sodium 40 Mg/0.4 Ml Syringe) 40 mg SUBCUT Q24H [facility] Last Admin: 08/23/23 21:51 Dose: 40 mg Clindamycin Phosphate (Cleocin) 900 mg in 50 mls @ 50 mls/hr IV Q8H [facility] Last Infusion: 08/24/23 16:31 Dose: Infused Melatonin (Melatonin 3 Mg Tablet) 6 mg PO BEDTIME PRN PRN Reason: Insomnia Morphine Sulfate (Morphine Sulfate 2 Mg/Ml Cartridge) 2 mg IVPUSH Q4H PRN; Protocol PRN Reason: Pain, Severe (Pain Scale 7-10) Last Admin: 08/22/23 08:55 Dose: 2 mg Ondansetron HCl (Ondansetron Hcl 4 Mg/2 Ml Vial) 4 mg IVPUSH Q8H PRN PRN Reason: Nausea and Vomiting Oxycodone HCl (Oxycodone Hcl Immed Release 5 Mg Tablet) 5 mg PO Q6H PRN PRN Reason: Pain, Moderate(Pain Scale 4-6) Last Admin: 08/24/23 08:03 Dose: 5 mg Pharmacy Consult (Consult Rx Vancomycin Dosing) 1 each MISCELLANE DAILY PRN PRN Reason: Consult order Sodium Chloride (0.9 % Sodium Chloride Flush 3 Ml Syringe) 3 ml IVFLUSH QSHIFT [facility] Last Admin: 08/24/23 20:08 Dose: 3 ml Home Medications ?Medication ?Instructions ?Recorded ?Confirmed ?Last Taken ?Type [id number]-[id number]-[id number] 250 2 tab PO Q6H PRN Headache 08/20/23 08/20/23 Unknown History mg-250 mg-65 mg tablet (Excedrin Extra Strength) Physical Exam 2 Vital Signs: Vital Signs: Last Vital Signs Temp 97.4 F 08/24/23 19:51 Pulse 91 08/24/23 19:51 Resp 20 08/24/23 19:51 BP 114/75 08/24/23 19:51 Pulse Ox 99 08/24/23 19:51 O2 Del Method Room Air 08/24/23 19:51 BMI result Body Mass Index 25.0 Const: General: cooperative HEENT: Head: Yes normal to inspection Face and sinus: Yes normal facial exam Mouth: Normal oral and palatal mucosa present Teeth and gingiva: d entition normal Eyes: General: appearance normal, both eyes and all related structures P upils: Equal, round and reactive pupils present Resp: Effort & Inspection: normal respiratory effort Cardio: Rate: regular rate Rhythm: regular rhythm GI: Palpation (GI): Soft to palpation and nontender : General: Yes no CVA tenderness Back/Spine/Pelvis: Back: no CVA tenderness Skin: General skin exam: no rashes or lesions noted Neuro: General: moves all extremities Cranial nerves: Yes Equal, round and reactive pupils present Extrem: Other: redness LLE,some up groin Psych: Appearance: grossly normal Results Labs 08/24/23 10:38 08/24/23 05:14 Labs: Short CBC 08/24/23 Range/Units 10:38 WBC 8.6 (4.8-10.8) X10*3/uL Hgb 14.2 (14.0-18.0) g/dl Hct 39.7 L (42.0-52.0) % Plt Count 282 D (160-400) X10*3/uL BMP 08/24/23 05:14 Creatinine 0.83 Microbiology Microbiology Results: Microbiology 08/20/23 22:32 Blood - Venous Blood Culture - Preliminary No growth after 48 hours. 08/20/23 18:02 Blood - Venous Blood Culture - Preliminary No growth after 48 hours. Assessment and Plan (1) Septic prepatellar bursitis of left knee: Status: Acute (2) Cellulitis: Qualifiers: Laterality: left Site of cellulitis: extremity Site of cellulitis of extremity: lower extremity Qualified Code(s): L03.116 - Cellulitis of left lower limb Status: Acute Plan There is no organism seen. He still has redness leg. He was seen by Orthopedics. Would change to IV Clindamycin 900 mg IV every 8 hours. Then on po Clindamycin 450 mg po tid for a week.
[2023-08-24] MEDS: Enoxaparin Sodium 40 MG/0.4 ML SYRINGE SUBCUT (23:23)
[2023-08-25 03:39] VITALS: BP 108/69; PULSE 75; RESP 20; TEMP 36.5; O2SAT 93
[2023-08-25] MEDS: oxyCODONE HCl Immed Release 5 MG TABLET PO (06:13)
[2023-08-25] MEDS: Clindamycin Phosphate/D5W 900 MG/50 ML PIGGYBACK 50 MG IV ×2 (06:14→14:02)
[2023-08-25 06:22] LABS: Creatinine Clr Calc Pharmacy 122.1; Estimated Glomerular Filt Rate > 60
[2023-08-25 06:45] VITALS: BP 116/72; PULSE 93; RESP 16; TEMP 36.6; O2SAT 97
[2023-08-25] MEDS: 0.9 % Sodium Chloride Flush 3 ML SYRINGE IVFLUSH (08:32)
--- NOTE | 2023-08-25 10:51 | P.DS_ITS ---
DS: Providers Provider Date of Service: 08/25/23 Date of admission: 08/20/23 22:18 Date of discharge: 08/25/23 Primary care physician: Haydee Weaver MD Attending physician on admission: Shanta Cam Consults: 08/21/23 13:15 Consult to Infectious Diseases Routine Consulting Provider: [facility] Infectious Disease Reason for consultation: knee cellulitis 08/22/23 07:49 Consult to Orthopedics Routine Consulting Provider: [facility] Orthopedic Surgeons Reason for consultation: Left knee swelling DS: Diagnosis Discharge Diagnosis (1) Septic prepatellar bursitis of left knee: Status: Acute (2) Cellulitis: Status: Acute DS: Summary Hospital Course Hospital Course: HPI on admission by Dr. Cam 08/19: Chief Complaint: Infection This is a 38-year-old male with no pertinent past medical history and not on prescription medications who presents to the emergency department for evaluation of redness and swelling over left knee. Patient states he 1st noticed about redness and swelling over left knee 3 days prior to presentation. It has progressed over the last 24-48 hours. No similar history in the past. Also has been having pain but is able to bend his knee and walk. Patient has a tattoo over left leg that he got 2 weeks prior to presentation but no infection over it. No drainage from left knee site. Patient does not remember any trauma to the left knee but states he was moving stuff all of last week and thinks he could have bumped it somewhere. No fever, chills, nausea, vomiting, chest discomfort, palpitations, shortness of breath, abdominal pain, changes in urinary or bowel habits. In the emergency department, patient was found to be septic and initiated on empiric IV antibiotics. Hospital course: Pt admitted to hospitalist service for management of sepsis with septic bursitis Left knee and cellulitis possibly related to tattoo from 2-3 weeks ago. He was initially treated with iv vanco but due to persistent erythema, clindamycin 900mg TID was added. Bedside I&D performed by orthopedic surgery with creamy discharge produced from abscess site. Followed by orthopedics with packing changed 08/23 and 08/24. Recommending outpt follow up in office on monday 08/28. Was also seen and evaluated by infectious disease recommended dc vanco and continue 900mg IV clindamycin TID. Leukocytosis resolved and vital signs normalized. Pt remained afebrile. Wound culture not obtained, but blood cultures negative. No evidence of severe sepsis during admission. Given marked improvement in erythema and warmth to the LLE, pt will be discharged on 450mg po clindamycin every 8 hours. Skin marker applied to borders of improved, but remaining erythema to the medial aspect LLE. Pictures below. He should follow up with orthopedics as mentioned and follow up with pcp soon. Evaluated by PT who did not recommend services on discharge. Did require oxycodone for severe pain. Will discharge on short course oxycodone to use only as needed for severe pain. otherwise can use motrin/tylenol prn. Masspat reviewed and is appropriate. Status at Discharge Functional status at discharge: independent ambulation Overall status at discharge: patient is progressing back to baseline Time Attestation Discharge Coordination Time (in mins): 41 Quality: Safe Use of Opioids Does Pt have an Active Cancer Diagnosis on the Problem List?: No Quality: Stroke Does the patient have a stroke diagnosis?: No Physical Exam 2 Vital Signs: Vital Signs: Last Vital Signs Temp 98 F 08/25/23 06:45 Pulse 93 08/25/23 06:45 Resp 16 08/25/23 06:45 BP 116/72 08/25/23 06:45 Pulse Ox 97 08/25/23 06:45 O2 Del Method Room Air 08/25/23 06:45 BMI result Body Mass Index 25.0 Constitutional - Awake and Alert, No apparent distress Eyes - PERRLA, EOMI Cardiovascular - S1S2, RRR, No edema Respiratory - Normal lung expansion, Normal respiratory effort, No respiratory distress, CTA bilaterally Extremities - no calf tenderness bilaterally, no swelling Skin - Warm/Dry. Erythema and wamrth (improved) medial aspect left thigh. Neurological - Alert & oriented x3 Psychological - Appropriate affect DS: Data Data Completed and Pending Labs on day of discharge: Laboratory Results - last 24 hr 08/24/23 08/25/23 10:38 05:22 WBC 8.6 RBC 4.71 Hgb 14.2 Hct 39.7 L MCV 84.3 MCH 30.1 MCHC 35.8 RDW 11.7 Plt Count 282 D MPV 9.0 L Immature Gran % (Auto) 0.5 H Neut % (Auto) 76.6 H Lymph % (Auto) 10.8 L [place] % (Auto) 8.0 Eos % (Auto) 3.4 Baso % (Auto) 0.7 Lymph # (Auto) 0.9 L [place] # (Auto) 0.7 Eos # (Auto) 0.3 Baso # (Auto) 0.1 Abs Immat Gran (auto) 0.04 H Absolute Neuts (auto) 6.6 Absolute Nucleated RBC 0.000 Nucleated RBC % (auto) 0.0 Hold Purple Top SEE NOTE Creatinine 0.74 Estim Creat Clear Calc 122.1 Estimated GFR > 60 Preliminary micro results at discharge 08/20/23 22:32 Blood Culture - Preliminary Blood - Venous No growth after 48 hours. 08/20/23 18:02 Blood Culture - Preliminary Blood - Venous No growth after 48 hours. Discharge Plan Discharge Anticipated Discharge Date/Time: 08/25/23 15:00 Patient Disposition: Home, Self-Care Discharge Diagnosis: Septic bursitis L knee with cellulitis lle Referrals: Haydee Weaver MD [Primary Care Provider] - 1 Week Rehan Hernandez PA-C [Physician Street Light Repairer] - 08/29/23 Discharge Medications: New clindamycin HCl 300 mg capsule 300 mg PO Q8H Qty: 21 0RF Rx Instructions: Take with clindamycin 150mg capsule. Total dose 450mg q8h x 7 days clindamycin HCl 150 mg capsule 150 mg PO Q8H Qty: 21 0RF Rx Instructions: Take with clindamycin 300mg q8h x 7 days. Total dose 450mg q8h x 7 days. Take with probiotic/yogurt and food oxycodone 5 mg capsule 5 mg PO BID PRN (Reason: pain, severe) Qty: 7 0RF Rx Instructions: Partial Fill upon patient request. Continued Excedrin Extra Strength 250-250-65 mg Tablet 2 tab PO Q6H PRN (Reason: Headache) Discharge Orders: Discharge Order (Routine); Ordered 08/25/23 Ordered By: Randee Freitas Diet: Advance to usual diet Activity on Discharge: As tolerated Stand Alone Forms: Patient Portal Discharge page Print Language: Hebrew Care Plan Goals: Continue abx to treat septic bursitis and cellulitis left leg Health Concerns: Septic bursitis Cellulitis Sepsis Plan of Treatment: Cellulitis/septic bursitis -continue clindamycin 450mg (300mg cap +150mg cap) every 8 hours x 21 doses (next dose due 9pm tonight). Take this medication with food. Take a probiotic daily and/or eat yogurt daily while taking this medication -short supply oxycodone sent to pharmacy to use only as needed for SEVERE pain. Otherwise recommend tylenol, motrin, ice. Continue compression wrap -packed by orthopedic surgery. Follow up with orthopedic team in office on sunday as scheduled Assessment: See above. See discharge summary Patient Instructions: Knee Bursitis (GEN) Discharge Date/Time: 08/25/23 16:00
[2023-08-25 11:30] LABS: Vancomycin Random 6.7 mcg/mL (15-20)
--- NOTE | 2023-08-25 12:18 | PM.PNORT ---
Subjective Subjective Date of Service: 08/25/23 Principal diagnosis: left knee spetic bursitis Interval history: Left knee septic bursitis no overnight events resting in bed less pain Physical Exam Vital Signs: Vital Signs: Last Vital Signs Temp 98 F 08/25/23 06:45 Pulse 93 08/25/23 06:45 Resp 16 08/25/23 06:45 BP 116/72 08/25/23 06:45 Pulse Ox 97 08/25/23 06:45 O2 Del Method Room Air 08/25/23 06:45 BMI result Body Mass Index 25.0 Const: General: cooperative, healthy appearing and no acute distress Resp: Effort & Inspection: normal respiratory effort and able to speak in complete sentences Cardio: Rate: regular rate Peripheral pulses: Peripheral pulses 2+ throughout GI: Palpation (GI): Soft to palpation Skin: Lesions: no lesions Rashes: no rashes Extrem: Other: Left knee cellulitic Abscess over the anterior aspect of the knee without active drainage Able to flex and extend with mild discomfort redness on inner thigh improving NVI Procedures Date of Service Date of Service: 08/25/23 Progress Note: A&P Assessment and plan (1) Septic prepatellar bursitis of left knee: Status: Acute Assessment and Plan: Draining wound s/p bediside I&D. packing removed-dry dressing applied Out of bed fu weds in office Time Spent With Patient Time: Total time managing care of this patient today ____ minutes. Quality Stroke Does the patient have a stroke diagnosis?: No VTE Prior VTE?: No VTE Risk Level:: Medical - moderate - high VTE Device Contraindication: Treatment Not Indicated VTE Drug Contraindication: N/A - Med Ordered
[2023-08-25 15:05] VITALS: BP 124/70; PULSE 77; RESP 20; TEMP 36.6; O2SAT 97
--- NOTE | 2023-08-25 15:25 | MHC.CM.PN ---
pt dcd home self care
--- NOTE | 2023-09-06 12:38 | P.CDIM_ITS ---
PROVIDER RESPONSE TEXT: To clarify, the appropriate diagnosis supported by the clinical indicators: I & D left knee: dime sized area septic bursitis left knee Does not extend into the joint space QUERY TEXT: PHYSICIAN'S DOCUMENTATION REQUEST Date of Query: 09/06/2023 06:12 AM EDT Patient Name: Juan Miguel Ramsey Admit Date: 08/21/2023 Dear Yuly Veras PA-C, RETROSPECTIVE QUERY A review of the medical record indicates additional documentation may be needed. Please review below and update the documentation accordingly. Clinical Indicators: Orthopedic procedure note dated 08/22/23 - Bedside I & D left knee performed creamy discharge procedure from the abscess site. Post procedural note: left knee septic bursitis, draining wound s/p bedside I & D. Wound repacked. Could you provide, in the Progress Notes, further clarification regarding the depth of the I& D perfo rmed: I & D left knee skin, subcutaneous tissue or other Other (explain) Clinically unable to determine (explain) Thank you, Karla Lancaster, CCS, CDIS Use of terms such as suspected, likely, concern for, or probable (associated with a specific diagnosi s that is being evaluated, monitored, or treated as if it exists) are acceptable and can be coded in the inpatient se tting, when documented at the time of discharge. Please use your independent medical judgment in providing your response. THIS QUERY IS PART OF THE PERMANENT MEDICAL RECORD
== END 2023-08-25 16:00 | disposition home or self-care (01) | DRG 854 ==
LOC: HO.ED 22:20 → HO.EDOVER 22:27 → HO.S3 08-21 07:29
PROVIDERS: Nurse Practitioner Acute Care; Physician Assistant Medical; Admitting Provider Student in an Organized Health Care Education/Training Program; Emergency Provider Emergency Medicine; PCP Internal Medicine; Visit Provider Physician Assistant
DX: A41.9 Sepsis, unspecified organism (principal); L03.116 Cellulitis of left lower limb; M71.062 Abscess of bursa, left knee
CPT/HCPCS: 36415; 73562; 80048; 80053; 80202; 82565; 83605; 83735; 84550; 85025; 85652; 86140; 87040; 97161; 99285; J0736; J1650; J2270; J2543; J3370; J3371

== ENCOUNTER → 2023-08-20 22:18 | Outpatient (BNV) | payer OTHER, SELFPAY | PROVIDERS: Admitting Provider Student in an Organized Health Care Education/Training Program; Emergency Provider Emergency Medicine; PCP Internal Medicine; Visit Provider Student in an Organized Health Care Education/Training Program | DX: A41.9 Sepsis, unspecified organism (principal); M71.162 Other infective bursitis, left knee; L03.116 Cellulitis of left lower limb | CPT/HCPCS: 99222; 99232; 99239 ==

== ENCOUNTER → 2023-08-20 22:18 | Outpatient (BNV) | payer OTHER, SELFPAY | PROVIDERS: Admitting Provider Student in an Organized Health Care Education/Training Program; Emergency Provider Emergency Medicine; PCP Internal Medicine; Visit Provider Internal Medicine | DX: M71.162 Other infective bursitis, left knee (principal); L03.116 Cellulitis of left lower limb | CPT/HCPCS: 99222 ==

== ENCOUNTER → 2023-08-20 22:18 | Outpatient (BNV) | payer OTHER, SELFPAY | PROVIDERS: Admitting Provider Student in an Organized Health Care Education/Training Program; Emergency Provider Emergency Medicine; PCP Internal Medicine; Visit Provider Physician Assistant | DX: M71.162 Other infective bursitis, left knee (principal) | CPT/HCPCS: 10060; 99024; 99222 ==

== ENCOUNTER 2023-08-29 08:11 | Outpatient (AMB) | payer OTHER, SELFPAY ==
--- NOTE | 2023-08-29 08:16 | MHC.OFFVIS ---
Intake Visit Reasons: PO-Left knee wound check Intake Note: Juan Miguel a 38 year old male who presents today for a post operative visit of left knee I&D, DOS 08/22/23. Patient reports he is doing well, stating he has no pain or concerns. He continues taking antibiotics as prescribed and ibuprofen for his pain prn. Allergies No Known Allergies Allergy (Verified 08/29/23 08:23) HPI HPI PO-Left knee wound check: Details: 38-year-old male who returns to the office today for post-op left knee I&D, 08/22/23. He states he has improvement in his pain and erythema and is doing well overall. He continues to take antibiotics as instructed as well as ibuprofen PRN. He has no other concerns today. [facility] Medical History Elevated blood pressure reading Family History Father No problems noted. Mother Type 2 diabetes mellitus Maternal Grandmother Lung cancer Social History Household Members: Family Housing: House Do you presently have visiting nurse or other home services: No Patient Tobacco Use Status: Never used Tobacco e-Cigarette/Vaping Use: Never Used service: Yes Current occupational status: employed Cognitive needs: No Hearing needs: No Vision needs: No Review of Systems Const All systems reviewed & are unremarkable except as noted in HPI and below Physical Exam Extrem Other: Left knee: Normal to inspection. Bursitis has resolved since he was last seen in the hospital. He has no redness, no swelling, no tenderness to palpation. Full ROM without pain. He has no lymphangitis. Calf supple, nontender. NVI. Assessment & Plan Assessment & Plan (1) Septic prepatellar bursitis of left knee: Code(s): M71.162 - Other infective bursitis, left knee Category: Medical Plan He will continue taking his antibiotics until completed. He will increase activity as tolerated and I did educate him that if he finishes the antibiotics and experiences increased redness, pain, or swelling, he will contact the office immediately, otherwise as needed. Patient Instructions: Scribed for Rehan Hernandez PA-C, by Jose Abhang, medical billing coder, on 08/29/2023 at 8:15 AM EST.? I, Rehan Hernandez PA-C, have personally reviewed and agree with the information entered by the scribe. Coding Level of Care Code Global (49173) Diagnoses Septic prepatellar bursitis of left knee M71.162
== END 2023-08-29 10:13 | disposition home or self-care (01) ==
PROVIDERS: PCP Internal Medicine; Visit Provider Physician Assistant
DX: M71.162 Other infective bursitis, left knee (principal)
CPT/HCPCS: 99024

== ENCOUNTER → 2023-08-29 08:11 | Outpatient (BNVA) | payer OTHER, SELFPAY | PROVIDERS: PCP Internal Medicine; Visit Provider Physician Assistant | DX: Z48.817 Encounter for surgical aftercare following surgery on the skin and subcutaneous tissue (principal); M71.162 Other infective bursitis, left knee; Z79.2 Long term (current) use of antibiotics | CPT/HCPCS: 99212 ==

== ENCOUNTER 2023-10-16 14:16 | Outpatient (AMB) | payer OTHER, SELFPAY ==
--- NOTE | 2023-10-16 14:18 | A.OFFPC_ITS ---
Vital Signs 10/16/23 14:19 Height 5 ft 6 in Weight 161 lb 4 oz BMI 26.0 BP 130/80 Pulse 80 Pulse Source Pulse Oximeter Pulse Oximetry (%) 97 Oxygen Delivery Method Room Air Intake Visit Reasons: PE Allergies No Known Allergies Allergy (Verified 10/16/23 14:18) Tobacco use date assessed: 10/16/23 Dental Screening Dental Screen Date: 10/16/23 Did you have a dental visit in the last 12 months?: Yes Did you have a dental problem in the last 6 months where you did not have access to dental care?: No Was dental information given to patient?: Patient has dentist HPI PE HPI Details Patient is a 38-year-old gentleman came in today for physical exam Patient was in hospital in August due to septic knee left side He was treated with antibiotic, patient is not sure what caused it He is doing well now and has full range of motion in his knee However he is complaining of pain right hip which locks at times I have ordered x-ray for the patient, I have also ordered physical therapy Patient is to get back to me after the physical therapy if still has a problem Labs were done in August when he was in hospital, reviewed with the patient He is taking no medications PFSH Medical History Elevated blood pressure reading Family History Father No problems noted. Mother Type 2 diabetes mellitus Maternal Grandmother Lung cancer Social History Household Members: Family Housing: House Do you presently have visiting nurse or other home services: No Patient Tobacco Use Status: Never used Tobacco e-Cigarette/Vaping Use: Never Used service: Yes Current occupational status: employed Cognitive needs: No Hearing needs: No Vision needs: No Questionnaire PHQ-9 Over the last 2 weeks, how often have you been bothered by any of the following problems? [id number] - PHQ-9 Billing: Patient declined-do not bill Source: Developed by Drs. Gagandeep Hamilton, Va Mandel, Trenton Pillai and colleagues, with an educational tiara from [employer]. Thrive Questionnaire Date Thrive assessed: 08/20/23 AUDIT C Alcohol Use Questionnaire (AUDIT-C) 1. How often do you have a drink containing alcohol?: Monthly or less 2. How many drinks containing alcohol do you have on a typical day when you are drinking?: 1 or 2 3. How often do you have six or more drinks on one occasion?: Never Total Score: 1 Score Reviewed/Action Taken: Yes Review of Systems Const Denies chills, Denies fever(s) and Denies headache(s) Eyes Denies blurry vision ENT Denies headache(s), Denies nasal discharge, Denies nasal obstruction, Denies odynophagia and Denies sinus pain Card Denies chest pain at rest and Denies chest pain with activity Resp Denies cough and Denies hemoptysis GI Denies diarrhea, Denies odynophagia, Denies vomiting and Denies hematemesis Reports as per HPI Musc Denies abnormal gait Skin/Breast Reports as per HPI Neuro Denies Neuro-related abnormal movements, Denies Abnormal speech present, Denies abnormal gait, Denies headache(s) and Denies Sensory deficit (Neuro) Psych Denies mood swings and Denies paranoia Endo Reports as per HPI Kang/Lymph Reports as per HPI Aller/Immun Reports as per HPI Physical exam (Primary Care) Vital Signs: Last Vital Signs Pulse 80 10/16/23 14:19 BP 130/80 10/16/23 14:19 Pulse Ox 97 10/16/23 14:19 Oxygen Delivery Method Room Air 10/16/23 14:19 BMI result Body Mass Index 26.0 Tobacco/Smoking Status: Tobacco use Status Tobacco use date assessed 10/16/23 10/16/23 14:23 Patient Tobacco Use Status Never used Tobacco 10/16/23 14:23 e-Cigarette/Vaping Use Never Used 10/16/23 14:23 Thrive Assessment: Date of Thrive Assessment Date Thrive assessed 08/20/23 10/16/23 14:23 Const General: cooperative, comfortable and no acute distress Orientation/consciousness: patient oriented x3 HENMT Head: Yes normocephalic and Yes atraumatic Eyes General: appearance normal, both eyes and all related structures Pupils: Equal, round and reactive pupils present EOM: EOMs intact bilaterally Neck Neck: Yes supple and No lymphadenopathy Thyroid: Thyroid normal Lymphatic: no lymphadenopathy noted Resp Effort & Inspection: normal respiratory effort and able to speak in complete sentences Auscultation: clear to auscultation bilaterally Cardio Heart sounds: S1 normal heart sound present and S2 normal heart sound present GI Palpation (GI): Soft to palpation and nontender Auscultation: normal bowel sounds General: Yes no CVA tenderness Back/Spine/Pelvis Back: no CVA tenderness Skin General skin exam: elasticity normal and turgor normal Neuro General: patient oriented x3 and gait normal Cranial nerves: Yes Equal, round and reactive pupils present Speech: No Abnormal speech present Sensory Exam: No Sensory deficit (Neuro) Coordination: tandem gait normal and Romberg test negative Extrem General: Yes normal exam except as noted and No edema Assessment and Plan Assessment & Plan (1) Encounter for general adult medical examination with abnormal findings: Code(s): Z00.01 - Encounter for general adult medical examination with abnormal findings (2) Hip pain, right: Code(s): M25.551 - Pain in right hip Plan Patient is a 38-year-old gentleman came in today for physical exam Patient was in hospital in August due to septic knee left side He was treated with antibiotic, patient is not sure what caused it He is doing well now and has full range of motion in his knee However he is complaining of pain right hip which locks at times I have ordered x-ray for the patient, I have also ordered physical therapy Patient is to get back to me after the physical therapy if still has a problem Labs were done in August when he was in hospital, reviewed with the patient He is taking no medications Orders: Orders PT Evaluation and Treatment Today M25.551 - Pain in right hip XR hip RT min 2V Today M25.551 - Pain in right hip Coding Level of Care Code Est Pt Level 3 (01164) Est Pt Prev Care 18-39y(98434) Diagnoses Encounter for general adult medical examination with abnormal findings Z00.01 Hip pain, right M25.551
[2023-10-16 14:19] VITALS: BP 130/80; PULSE 80; O2SAT 97; BMI 26.0
== END 2023-10-16 14:41 | disposition home or self-care (01) ==
PROVIDERS: PCP Internal Medicine; Visit Provider Internal Medicine
DX: Z00.01 Encounter for general adult medical examination with abnormal findings (principal); M25.551 Pain in right hip
CPT/HCPCS: 99213; 99395

== ENCOUNTER 2023-10-16 14:42 | Outpatient (REF) | payer OTHER, SELFPAY ==
--- NOTE | ~2023-10-16 | XR_ITS ---
EXAMINATION: XR HIP, RIGHT CLINICAL INFORMATION: Pain right hip COMPARISON: None available. TECHNIQUE: Two views of the right hip. FINDINGS: Alignment maintained. Bone mineralization is normal. Hip joint space is preserved. Mild hypertrophic change along the lateral acetabulum. XR/XR hip RT min 2V IMPRESSION: Minimal degenerative changes in the right hip.
== END 2023-10-16 14:43 | disposition home or self-care (01) ==
LOC: HO.HMGCX 14:42
PROVIDERS: PCP Internal Medicine; Visit Provider Internal Medicine
DX: M25.551 Pain in right hip (principal)
CPT/HCPCS: 73502

== ENCOUNTER 2023-10-30 09:46 | Outpatient (RCR) | payer OTHER, SELFPAY ==
--- NOTE | 2023-10-30 10:51 | MHC.PT.EP ---
[facility] [place] Office [place] Office [place] Office [address] [phone] F: [phone] F: [phone] F: [phone] F: [phone] Physical Therapy Plan of Care Date of Evaluation: 10/30/23 Date of Surgery: Diagnosis: Pain in R hip Assessment: Patient is a 38 year old R handed male who presents with s/s consistent with R hip pain. He works with daily job demands including . He did also have sepsis in his L knee 2 months ago. Patient past medical history is otherwise unremarkable. Current impairments include pain, strength, activity tolerance and functional mobility. Functional limitations include decreased ability to run, sleep, transfer and squat. Patient is motivated with good rehab potential. Skilled PT will address impairments and functional limitations in order to achieve goals. Frequency and Duration: The patient will be seen 1x/week for 5 weeks Short Term Goals: I with HEP - 2 weeks Pain free sleeping - 3 weeks Pain free work day - 3 weeks Assisted Goals: LEFS 68/80 or better -5 weeks Strength 4+/5 or better -5 weeks Pain free jogging, no locking/clicking - 5 weeks Treatment Plan: Modalities to reduce pain, spasms and effusion. Manual therapy to restore motion and function. Therapeutic exercise to improve strength and flexibility. Neuromuscular re-education for posture and balance. Therapeutic activities to return to functional activities of daily living. Electronically signed by: Yoel Cid PT Please sign and return to therapist. Thank you for your referral.
--- NOTE | 2024-05-14 09:35 | MHC.PT.DC ---
[facility] [place] Office [place] Office [place] Office [address] Black [address] [facility] [phone] F: [phone] F: [phone] F: [phone] F: [phone] Physical Therapy Discharge Report Diagnosis: Pain in R hip Date of Surgery: Date of Evaluation: 10/30/23 Date of Discharge: 11/16/23 Treatments to Date: 1 Cancellations to Date: No Shows to Date: Discharge Status: Patient Elected to Stop Discharge Summary: Patient is a 38 year old R handed male who presents with s/s consistent with R hip pain. He works with daily job demands including . He did also have sepsis in his L knee 2 months ago. Patient past medical history is otherwise unremarkable. Current impairments include pain, strength, activity tolerance and functional mobility. Functional limitations include decreased ability to run, sleep, transfer and squat. Patient is motivated with good rehab potential. Skilled PT will address impairments and functional limitations in order to achieve goals. Electronically signed by: Yoel Cid, PT Please sign and return to therapist. Thank you for your referral.
== END 2024-05-14 09:35 | disposition home or self-care (01) ==
LOC: HO.PTCHIC 09:46
PROVIDERS: PCP Internal Medicine; Visit Provider Internal Medicine
DX: M25.551 Pain in right hip (principal)
CPT/HCPCS: 97110; 97161

== ENCOUNTER 2024-12-24 10:11 | Outpatient (AMB) | payer OTHER, SELFPAY ==
[2024-12-24 10:15] VITALS: BP 120/78; PULSE 73; O2SAT 98; BMI 26.8
--- NOTE | 2024-12-24 10:15 | A.OFFPC_ITS ---
Vital Signs 12/24/24 10:15 Height 5 ft 6 in Weight 166 lb BMI 26.8 BP 120/78 Blood Pressure Location Lt brachial Position Sitting Pulse 73 Pulse Source Pulse Oximeter Pulse Oximetry (%) 98 Intake Visit Reasons: pe Allergies No Known Allergies Allergy (Verified 12/24/24 10:15) Medication List - Last Reconciled 12/24/24 by Haydee Weaver MD Tobacco use date assessed: 12/24/24 Dental Screening Dental Screen Date: 12/24/24 Did you have a dental visit in the last 12 months?: Yes Did you have a dental problem in the last 6 months where you did not have access to dental care?: No Was dental information given to patient?: Patient has dentist HPI pe HPI Details History of Present Illness The patient is a 39-year-old male presenting for a physical exam 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 - Patient indicates a history of fractur e to the right hip approximately 15 years prior. - Past imaging, specifically an X-ray, c onfirmed changes in the hip joint. - He describes intermittent locking and pain in the right hip, which occasionally improves with joint manipulation. - The hip fracture history included no s urgical intervention due to lack of insurance at the time. Nail Bed Disfigurement: - The patient reports a history of nail appearance concerns, previously tested for fungal infection without positive results. - A sample was taken by a previous physi lynn with results showing no fungal growth. Years ago - The patient describes disfigurement of the nails without substantial trauma. - He expresses a desire for further eval uation or potential treatment if a condition is identified. 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 He is physically active and engages in lifting tasks. - Tobacco use: No smoking reported. - Insurance: insurance coverage discussed. Family History: - No relevant family medical history Health Maintenance - Vaccinations: Tetanus immunization up to date; next due in 2028. - Yearly fasting lab work recommended fo r comprehensive assessment. - Regular physical exams as part of both civilian and health requirements. - Annual HIV screening as per r equirements. Medications - Tylenol for hip pain management, as ne eded. 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 - Undergoes separate physical e xaminations. Patient Instructions - Provide a nail clipping sample for fun gal testing and submit it to the lab. - Return fasting for blood test to [facility] e lab results. - Schedule next physical examination in one year. Review of Systems - General: No fever no chills - Neurological: No headaches no dizzin ess - Ear nose throat: No sore throat no hearing difficulty no ear pain - Cardiovascular: No syncope, no chest pain, no palpitations - Gastrointestinal: No nausea vomiting or diarrhea - Endocrine: No polyuria polydipsia no heat intolerance - Genitourinary: No dysuria - Skin: No new complaints Physical Exam General: Cooperative, healthy appearing, comfortable, no acute distress Orientation: Patient oriented x3 Limitations: None Head: Normal to inspection Ears: Within normal limit visually Nose: Normal external nose present Face and sinus: Normal facial exam Eyes: Appearance normal, extraocular movement intact pupils reactive Neck: Normal visual inspection and supple Respiratory: Normal respiratory effort and able to speak in complete sentences. Clear to auscultation, no stridor Cardiovascular: S1 and S2 RRR GI: Normal to inspection. Soft to palpation and nontender Skin: Turgor normal, no acute findings Neuro: Patient oriented x3, motor sensory intact, balance intact, tandem pass Extremities: Full range of motion no pain, nails disfigured both hands and feet [facility] Medical History Elevated blood pressure reading Family History Father No problems noted. Mother Type 2 diabetes mellitus Maternal Grandmother Lung cancer Social History Household Members: Family Housing: House Do you presently have visiting nurse or other home services: No Patient Tobacco Use Status: Never used Tobacco e-Cigarette/Vaping Use: Never Used service: Yes Current occupational status: employed Cognitive needs: No Hearing needs: No Vision needs: No Questionnaire PHQ-9 Over the last 2 weeks, how often have you been bothered by any of the following problems? 1. Little interest or pleasure in doing things: not at all 2. Feeling down, depressed, or hopeless: not at all 3. Trouble falling or staying asleep, or sleeping too much: not at all 4. Feeling tired or having little energy: not at all 5. Poor appetite or overeating: not at all 6. Feeling bad about yourself - or that you are a failure or have let yourself or your family down: not at all 7. Trouble concentrating on things, such as reading the newspaper or watching television: not at all 8. Moving or speaking so slowly that other people could have noticed. Or the opposite - being so fidgety or restless that you have been moving around a lot more than usual: not at all 9. Thoughts that you would be better off or of hurting yourself in some way: not at all Total score: 0 Depression Screening Interpretation: Negative Depression Screening Done: Yes 90166 - PHQ-9 Billing: Yes Source: Developed by Drs. Gagandeep Hamilton, Va Mandel, Trenton Pillai and colleagues, with an educational tiara from [email or web address]. Thrive Questionnaire Date Thrive assessed: 12/24/24 I am a: Patient What is your living situation today?: I have a steady place to live Within the past 12 months, did the food you bought not last and you didn't have the money to get more?: Never true Within the past 12 months, did you worry whether your food would run out before you got money to buy more?: Never true Do you have trouble paying for medicines?: No Do you have trouble getting transportation to medical appointments?: No Do you have trouble paying your heating and electricity bill?: No Do you have trouble taking care of your child, family member or friend?: No Do you have trouble with day-to-day activities such as bathing, preparing meals, shopping, managing finances, etc.?: No Are you currently unemployed and looking for a job?: No Are you interested in more education?: No Please select the resources that you would like help with: None Currently or been in a relationship where the following occur: No concerns reported THRIVE Score: 0 AUDIT C Alcohol Use Questionnaire (AUDIT-C) 1. How often do you have a drink containing alcohol?: 2-4 times a month 2. How many drinks containing alcohol do you have on a typical day when you are drinking?: 3 or 4 3. How often do you have six or more drinks on one occasion?: Less than monthly Total Score: 4 Score Reviewed/Action Taken: Yes SOFIA-7 AMB Questionnaire SOFIA-7 Date SOFIA - 7 assessed: 12/24/24 Feeling nervous, anxious, or on edge: 0 = Not at all Not being able to stop or control worryin = Not at all Worrying too much about different things: 0 = Not at all Trouble relaxin = Not at all Being so restless that it is hard to sit still: 0 = Not at all Becoming easily annoyed or irritable: 0 = Not at all Feeling afraid as if something awful might happen: 0 = Not at all Total SOFIA-7 score (0-4 normal; 5-9 mild; 10-14 moderate; 15-21 severe): 0 Source: Developed by Drs. Gagandeep Hamilton, Va Mandel, Trenton Pillai and colleagues, with an educational tiara from [email or web address]. SOFIA-7 Assessment Billing SOFIA-7 Assessment Tool: SOFIA-7 Assessment 09720 Physical exam (Primary Care) Vital Signs: Last Vital Signs Pulse 73 12/24/24 10:15 BP 120/78 12/24/24 10:15 Pulse Ox 98 12/24/24 10:15 BMI result Body Mass Index 26.8 Tobacco/Smoking Status: Tobacco use Status Tobacco use date assessed 12/24/24 12/24/24 10:16 Patient Tobacco Use Status Never used Tobacco 12/24/24 10:16 e-Cigarette/Vaping Use Never Used 12/24/24 10:16 PHQ-9: PHQ-9 Score PHQ-9: Total score 0 12/24/24 10:42 Depression Screening Interpretation: Negative Thrive Assessment: Date of Thrive Assessment Date Thrive assessed 12/24/24 12/24/24 10:16 Currently or been in a relationship where the following occur: No concerns reported Coding Level of Care Code Est Pt Level 3 (52739) Est Pt Prev Care 18-39y(66510) Diagnoses Encounter for general adult medical examination with abnormal findings Z00.01 Nail abnormalities L60.9 Additional Codes SOFIA-7 Assessment Billing - SOFIA-7 Assessment Tool: SOFIA-7 Assessment 63639 ([id number]) PHQ-9 - 93760 - PHQ-9 Billing: Yes ([id number]) Assessment & Plan Assessment & Plan (1) Encounter for general adult medical examination with abnormal findings: Code(s): Z00.01 - Encounter for general adult medical examination with abnormal findings Category: Medical (2) Nail abnormalities: Code(s): L60.9 - Nail disorder, unspecified Category: Medical Plan History of Present Illness The patient is a 39-year-old male presenting for a physical exam 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 - Patient indicates a history of fracture to the right hip approximately 15 years prior. - Past imaging, specifically an X-ray, confirmed changes in the hip joint. - He describes intermittent locking and pain in the right hip, which occasionally improves with joint manipulation. - The hip fracture history included no surgical intervention due to lack of insurance at the time. Nail Bed Disfigurement: - The patient reports a history of nail appearance concerns, previously tested for fungal infection without positive results. - A sample was taken by a previous physician with results showing no fungal growth. Years ago - The patient describes disfigurement of the nails without substantial trauma. - He expresses a desire for further evaluation or potential treatment if a condition is identified. 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 He is physically active and engages in lifting tasks. - Tobacco use: No smoking reported. - Insurance: insurance coverage discussed. Family History: - No relevant family medical history Health Maintenance - Vaccinations: Tetanus immunization up to date; next due in 2028. - Yearly fasting lab work recommended for comprehensive assessment. - Regular physical exams as part of both civilian and health requirements. - Annual HIV screening as per requirements. Medications - Tylenol for hip pain management, as needed. 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 - Undergoes separate physical examinations. Patient Instructions - Provide a nail clipping sample for fungal testing and submit it to the lab. - Return fasting for blood test to update lab results. - Schedule next physical examination in one year. Orders: Orders Complete Blood Count Auto Diff Today L60.9 - Nail disorder, unspecified, Z00.01 - Encounter for general adult medical examination with abnormal findings Comprehensive Bastian. Panel Fast Today L60.9 - Nail disorder, unspecified, Z00.01 - Encounter for general adult medical examination with abnormal findings Lipid Panel Today L60.9 - Nail disorder, unspecified, Z00.01 - Encounter for general adult medical examination with abnormal findings Vitamin D 25-OH (D2 and D3) Today L60.9 - Nail disorder, unspecified, Z00.01 - Encounter for general adult medical examination with abnormal findings HIV Ab/Ag Today L60.9 - Nail disorder, unspecified, Z00.01 - Encounter for general adult medical examination with abnormal findings Fungus Cult Hair/Skin/Nail Today L60.9 - Nail disorder, unspecified, Z00.01 - Encounter for general adult medical examination with abnormal findings
== END 2024-12-24 10:44 | disposition home or self-care (01) ==
LOC: HO.HMCC 10:12
PROVIDERS: PCP Internal Medicine; Visit Provider Internal Medicine
DX: Z00.01 Encounter for general adult medical examination with abnormal findings (principal); L60.9 Nail disorder, unspecified

== ENCOUNTER → 2024-12-24 10:11 | Outpatient (BNVA) | payer OTHER, SELFPAY | PROVIDERS: PCP Internal Medicine; Visit Provider Internal Medicine | DX: Z00.01 Encounter for general adult medical examination with abnormal findings (principal); L60.9 Nail disorder, unspecified; M25.551 Pain in right hip | CPT/HCPCS: 96127; 99212 ==

== ENCOUNTER 2024-12-24 20:00 | Outpatient (REF) | payer OTHER, SELFPAY | END 2024-12-24 20:01 | disposition home or self-care (01) | LOC: HO.HMGCLNP 20:00 | PROVIDERS: PCP Internal Medicine; Visit Provider Internal Medicine | DX: Z13.89 Encounter for screening for other disorder (principal) ==

== ENCOUNTER 2025-01-10 07:01 | Outpatient (REF) | payer OTHER, SELFPAY ==
[2025-01-10 11:10] LABS: MANUAL DIFF FLAG NO
[2025-01-10 11:17] LABS: Hematocrit 44.8 % (42.0-52.0); Hemoglobin 16.1 g/dl (14.0-18.0); Imm Gran Abs Auto 0.01 X10*3/uL (0.00-0.03); Imm Gran Pct Auto 0.2 % (0.0-0.4); Lymphocytes Absolute Auto 1.4 X10*3/uL (1.2-4.9); Mean Corpuscular HGB Conc 35.9 g/dl (31.0-36.0); Mean Corpuscular Hemoglobin 30.5 pg (27.0-33.0); Mean Corpuscular Volume 84.8 fL (80.0-98.0); NRBC Abs Auto 0.000 X10*3/uL (0.0-0.012); NRBC Pct Auto 0.0 /100WBC (0.0-0.2); Platelet Count 257 X10*3/uL (160-400); Red Blood Count 5.28 X10*6/uL (4.60-5.80); White Blood Count 5.5 X10*3/uL (4.8-10.8)
[2025-01-10 11:40] LABS: Alanine Aminotransferase 28 U/L (0-40); Albumin Level 4.7 g/dL (3.5-5.0); Alkaline Phosphatase 43 U/L (39-117); Anion Gap 9 (12-20); Aspartate Amino Transferase 25 U/L (5-37); Blood Urea Nitrogen 18 mg/dL (9-16); Calcium 9.2 mg/dL (8.4-10.2); Carbon Dioxide 26 mmol/L (22-29); Chloride 109 mmol/L (96-108); Cholesterol 154 mg/dL (<200); Estimated Glomerular Filt Rate > 60; HDL Cholesterol 48 mg/dL (>40); Potassium 4.2 mmol/L (3.3-5.1); Sodium 140 mmol/L (135-145); Total Protein 7.1 g/dL (6.5-8.0); Triglycerides 60 mg/dL (<150)
[2025-01-12 04:50] LABS: HIV Num 1 0.04 S/CO (0.00-0.99)
[2025-01-22 12:58] LABS: Vitamin D 25-OH, D2 <4 ng/mL; Vitamin D 25-OH, D3 21 ng/mL; Vitamin D 25-OH, Total 21 ng/mL (30-100)
== END 2025-01-10 07:02 | disposition home or self-care (01) ==
LOC: HO.HMGCLDS 07:01
PROVIDERS: PCP Internal Medicine; Visit Provider Internal Medicine
DX: Z00.01 Encounter for general adult medical examination with abnormal findings (principal); L60.9 Nail disorder, unspecified; Z13.21 Encounter for screening for nutritional disorder; Z13.6 Encounter for screening for cardiovascular disorders
CPT/HCPCS: 36415; 80053; 80061; 82306; 85025; 87389

== ENCOUNTER 2025-01-13 07:57 | Outpatient (AMB) | payer OTHER, SELFPAY ==
[2025-01-13 08:09] VITALS: BP 120/78; PULSE 77; O2SAT 98; BMI 27.4
--- NOTE | 2025-01-13 08:09 | MHC.PC.OV ---
Vital Signs 01/13/25 08:09 Height 5 ft 6 in Weight 170 lb BMI 27.4 BP 120/78 Blood Pressure Location Lt brachial Position Sitting Pulse 77 Pulse Source Pulse Oximeter Pulse Oximetry (%) 98 Intake Visit Reasons: nail fungus Allergies No Known Allergies Allergy (Verified 01/13/25 08:11) Medication List - Last Reconciled 01/13/25 by Haydee Weaver MD No Known Home Meds Tobacco use date assessed: 12/24/24 Dental Screening Dental Screen Date: 12/24/24 HPI nail fungus HPI Details Medical History Toenail and fingernails both hands and both feet chronically Labs done recently reviewed with the patient Problem List - Onychomycosis - Pending Vitamin D deficiency assessment Plan 1. Onychomycosis - Treatment initiated with Terbinafine 250 mg, to be taken once daily for a duration of up to six months. - Plan to monitor response to treatment and evaluate nails during the follow-up appointment in two months. - Instructed patient to report any adverse symptoms such as nausea, vomiting, rash, or cramping. - Recommended liver enzyme testing in four weeks to monitor hepatic function due to the medication metabolization. - Nail culture results indicate Trichophyton rubrum. Patient Instructions - Take one Terbinafine 250 mg tablet every day as prescribed. - Inform the doctor immediately of any side effects like nausea, vomiting, rash, or cramping. - Plan to return for a follow-up appointment in two months for reevaluation. - Continue regular health monitoring including liver enzyme testing in four weeks. - Consider taking an kipb-vhw-opkaljs vitamin D supplement. - Maintain a healthy lifestyle and diet, as cholesterol levels are currently well-managed. Review of Systems - General: No fever no chills - Neurological: No headaches no dizziness - Ear nose throat: No sore throat no hearing difficulty no ear pain - Cardiovascular: No syncope, no chest pain, no palpitations - Gastrointestinal: No nausea vomiting or diarrhea - Endocrine: No polyuria polydipsia no heat intolerance - Genitourinary: No dysuria , no blood in urine Physical Exam General: No acute distress HEENT: No acute findings Neck: Supple Respiratory system: Able to talk in full sentences, no audible wheeze Cardiovascular: S1-S2 regular in rate and rhythm Gastrointestinal: No pain Extremities: Toenail fungus present 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 Mother Type 2 diabetes mellitus Maternal Grandmother Lung cancer Social History Household Members: Family Housing: House Do you presently have visiting nurse or other home services: No Patient Tobacco Use Status: Never used Tobacco e-Cigarette/Vaping Use: Never Used service: Yes Current occupational status: employed Cognitive needs: No Hearing needs: No Vision needs: No Questionnaire PHQ-9 Over the last 2 weeks, how often have you been bothered by any of the following problems? 1. Little interest or pleasure in doing things: not at all 2. Feeling down, depressed, or hopeless: not at all 3. Trouble falling or staying asleep, or sleeping too much: not at all 4. Feeling tired or having little energy: not at all 5. Poor appetite or overeating: not at all 6. Feeling bad about yourself - or that you are a failure or have let yourself or your family down: not at all 7. Trouble concentrating on things, such as reading the newspaper or watching television: not at all 8. Moving or speaking so slowly that other people could have noticed. Or the opposite - being so fidgety or restless that you have been moving around a lot more than usual: not at all 9. Thoughts that you would be better off or of hurting yourself in some way: not at all Total score: 0 Depression Screening Interpretation: Negative Depression Screening Done: Yes 29666 - PHQ-9 Billing: Yes Source: Developed by Drs. Gagandeep Hamilton, Va Mandel, Trenton Pillai and colleagues, with an educational tiara from [employer]. Thrive Questionnaire Date Thrive assessed: 12/17/24 I am a: Patient What is your living situation today?: I have a steady place to live Within the past 12 months, did the food you bought not last and you didn't have the money to get more?: Never true Within the past 12 months, did you worry whether your food would run out before you got money to buy more?: Never true Do you have trouble paying for medicines?: No Do you have trouble getting transportation to medical appointments?: No Do you have trouble paying your heating and electricity bill?: No Do you have trouble taking care of your child, family member or friend?: No Do you have trouble with day-to-day activities such as bathing, preparing meals, shopping, managing finances, etc.?: No Are you currently unemployed and looking for a job?: No Are you interested in more education?: No Please select the resources that you would like help with: None Currently or been in a relationship where the following occur: No concerns reported THRIVE Score: 0 SOFIA-7 AMB Questionnaire SOFIA-7 Date SOFIA - 7 assessed: 12/24/24 Source: Developed by Drs. Gagandeep Hamilton, Va Mandel, Trenton Pillai and colleagues, with an educational tiara from [employer]. Physical exam (Primary Care) Vital Signs: Last Vital Signs Pulse 77 01/13/25 08:09 BP 120/78 01/13/25 08:09 Pulse Ox 98 01/13/25 08:09 BMI result Body Mass Index 27.4 Tobacco/Smoking Status: Tobacco use Status Tobacco use date assessed 12/24/24 01/13/25 08:11 Patient Tobacco Use Status Never used Tobacco 01/13/25 08:11 e-Cigarette/Vaping Use Never Used 01/13/25 08:11 PHQ-9: PHQ-9 Score PHQ-9: Total score 0 01/13/25 08:25 Depression Screening Interpretation: Negative Thrive Assessment: Date of Thrive Assessment Date Thrive assessed 12/17/24 01/13/25 08:11 Currently or been in a relationship where the following occur: No concerns reported Coding Level of Care Code Est Pt Level 3 (85800) Diagnoses Nail fungal infection B35.1 Additional Codes PHQ-9 - 27115 - PHQ-9 Billing: Yes ([id number]) Assessment & Plan Assessment & Plan (1) Nail fungal infection: Code(s): B35.1 - Tinea unguium Category: Medical Plan Patient Instructions - Take one Terbinafine 250 mg tablet every day as prescribed. - Inform the doctor immediately of any side effects like nausea, vomiting, rash, or cramping. - Plan to return for a follow-up appointment in two months for reevaluation. - Continue regular health monitoring including liver enzyme testing in four weeks. - Consider taking an [id number]-[id number] vitamin D supplement. - Maintain a healthy lifestyle and diet, as cholesterol levels are currently well-managed. Orders: Orders Liver Panel Today B35.1 - Tinea unguium Medications: New terbinafine HCl 250 mg PO DAILY 90 tabs 0RF
== END 2025-01-13 08:26 | disposition home or self-care (01) ==
LOC: HO.HMCC 07:58
PROVIDERS: PCP Internal Medicine; Visit Provider Internal Medicine
DX: B35.1 Tinea unguium (principal)

== ENCOUNTER → 2025-01-13 07:57 | Outpatient (BNVA) | payer OTHER, SELFPAY | PROVIDERS: PCP Internal Medicine; Visit Provider Internal Medicine | DX: B35.1 Tinea unguium (principal) | CPT/HCPCS: 96127; 99212 ==

== ENCOUNTER 2025-03-10 07:57 | Outpatient (AMB) | payer OTHER, SELFPAY ==
[2025-03-10 08:08] VITALS: BP 118/68; PULSE 73; O2SAT 97; BMI 27.1
--- NOTE | 2025-03-10 08:08 | MHC.PC.OV ---
Vital Signs 03/10/25 08:08 Height 5 ft 6 in Weight 168 lb BMI 27.1 BP 118/68 Blood Pressure Location Lt brachial Position Sitting Pulse 73 Pulse Source Pulse Oximeter Pulse Oximetry (%) 97 Intake Visit Reasons: 2m follow up Allergies No Known Allergies Allergy (Verified 03/10/25 08:10) Medication List - Last Reconciled 03/10/25 by Haydee Weaver MD terbinafine HCl 250 mg PO DAILY Tobacco use date assessed: 12/24/24 Dental Screening Dental Screen Date: 12/24/24 HPI HPI Comments History of Present Illness Details History of Present Illness The patient is a 39 year old individual presenting for a follow-up on onychomycosis. Onychomycosis: - The patient has been treated for onychomycosis of the fingernails and toenails for two months, starting in December. - The treatment consists of daily Terbinafine 250 mg. - The patient reports no problems taking the medication. [facility] Medical History Elevated blood pressure reading Surgical History No pertinent past surgical history Family History Father No problems noted. Mother Type 2 diabetes mellitus Maternal Grandmother Lung cancer Social History Household Members: Family Housing: House Do you presently have visiting nurse or other home services: No Patient Tobacco Use Status: Never used Tobacco e-Cigarette/Vaping Use: Never Used service: Yes Current occupational status: employed Cognitive needs: No Hearing needs: No Vision needs: No Questionnaire Thrive Questionnaire Date Thrive assessed: 12/17/24 I am a: Patient What is your living situation today?: I have a steady place to live Within the past 12 months, did the food you bought not last and you didn't have the money to get more?: Never true Within the past 12 months, did you worry whether your food would run out before you got money to buy more?: Never true Do you have trouble paying for medicines?: No Do you have trouble getting transportation to medical appointments?: No Do you have trouble paying your heating and electricity bill?: No Do you have trouble taking care of your child, family member or friend?: No Do you have trouble with day-to-day activities such as bathing, preparing meals, shopping, managing finances, etc.?: No Are you currently unemployed and looking for a job?: No Are you interested in more education?: No Please select the resources that you would like help with: None Currently or been in a relationship where the following occur: No concerns reported THRIVE Score: 0 SOFIA-7 AMB Questionnaire SOFIA-7 Date SOFIA - 7 assessed: 12/24/24 Source: Developed by Drs. Gagandeep Hamilton, Va Mandel, Trenton Pillai and colleagues, with an educational tiara from [email or web address]. Review of Systems Narrative Review of Systems - General: No fever no chills - Neurological: No headaches no dizziness - Ear nose throat: No sore throat no hearing difficulty no ear pain - Cardiovascular: No syncope, no chest pain, no palpitations - Gastrointestinal: No nausea vomiting or diarrhea Physical exam (Primary Care) Vital Signs: Last Vital Signs Pulse 73 03/10/25 08:08 BP 118/68 03/10/25 08:08 Pulse Ox 97 03/10/25 08:08 BMI result Body Mass Index 27.1 Tobacco/Smoking Status: Tobacco use Status Tobacco use date assessed 12/24/24 03/10/25 08:11 Patient Tobacco Use Status Never used Tobacco 03/10/25 08:11 e-Cigarette/Vaping Use Never Used 03/10/25 08:11 Thrive Assessment: Date of Thrive Assessment Date Thrive assessed 12/17/24 03/10/25 08:11 Currently or been in a relationship where the following occur: No concerns reported Narrative Physical Exam - General: No acute distress - HEENT: No acute findings - Neck: Supple - Respiratory system: Able to talk in full sentences, no audible wheeze - Gastrointestinal: No pain - Extremities: Both hand nails improving as well as the toenails - 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 - A prescription will be sent for the medication. - The patient is advised to obtain blood work to check liver function before the next visit. - No fasting is required for the blood work. - A follow-up appointment is scheduled in three months. Orders: Orders Comprehensive Met. Panel Today B35.1 - Tinea unguium Medications: Refilled terbinafine HCl 250 mg PO DAILY 90 tabs 0RF
== END 2025-03-10 09:11 | disposition home or self-care (01) ==
LOC: HO.HMCC 07:58
PROVIDERS: PCP Internal Medicine; Visit Provider Internal Medicine
DX: B35.1 Tinea unguium (principal)

== ENCOUNTER → 2025-03-10 07:57 | Outpatient (BNVA) | payer OTHER, SELFPAY | PROVIDERS: PCP Internal Medicine; Visit Provider Internal Medicine | DX: B35.1 Tinea unguium (principal) | CPT/HCPCS: 99212 ==